=== PATIENT | male | born 1950 | race Hispanic/Latino ===

== ENCOUNTER 2017-02-22 22:47 | Inpatient (IN) | payer OTHER ==
[2017-02-22 22:50] VITALS: BMI 34.0
[2017-02-22] MEDS ORDERED: Nitroglycerin 2% Ointment Foilpak UD TOP STA (23:28)
[2017-02-22 23:31] LABS: BASO # 0.03 K/mm3 (0.0-2.0); BASO % 0.3 % (0.0-3.0); EOS # 0.4 (0.0-0.7); EOS % 3.5 % (1.5-5.0); GRAN # 8.37 (1.4-6.5); GRAN % 82.2 % (50.0-68.0); HEMATOCRIT 47.8 % (42.0-52.0); LYMPH % 9.7 % (22.0-35.0); MEAN CELL VOLUME 92.5 fl (80.0-105.0); MEAN CORPUSCULAR HEMOGLOBIN 31.3 pg (25.0-35.0); MEAN CORPUSCULAR HGB CONC 33.9 g/dl (31.0-37.0); MEAN PLATELET VOLUME 11.1 fl (7.0-11.0); MONO # 0.4 (0.1-0.6); MONO % 4.3 % (1.0-6.0); WHITE BLOOD COUNT 10.2 10^3/ul (4.5-11.0)
[2017-02-22 23:35] LABS: ALB/GLOB RATIO 1.3 (1.1-1.8); BILIRUBIN,TOTAL 0.8 mg/dL (0.2-1.3); CALCIUM 9.8 mg/dL (8.4-10.5); MAGNESIUM 2.4 mg/dL (1.7-2.2); POTASSIUM 3.1 mmol/L (3.6-5.0); TOTAL PROTEIN 7.8 g/dL (5.8-8.3)
--- NOTE | 2017-02-22 23:40 | ED PDOC ---
Arrival/HPI - General Chief Complaint: Chest Pain Time Seen by Provider: 02/22/17 23:08 Historian: Patient, Spouse - History of Present Illness Narrative History of Present Illness (Text): 02/22/17 23:30 A 66 year old male, whose past medical history includes CAD and stents placed in last year, whom is accompanied by his , presents to the emergency department complaining of mid-epigastric and central chest pain. Patient describes pain as aching sensation. He mentions this is the first time he's experienced chest pain since last year when stents were placed. Also, patient notes experiencing questionable chills, minor dizziness and lightheadedness. patient's states patient has not been as active as usual. Patient denies any nausea, vomiting, any pain radiating to either arm or neck, or any other complaints at this time. He is compliant with medications prescribed to him. Smokes 1 cigarette every other day. No PMD Symptom Onset: Sudden Symptom Course: Unchanged Past Medical History - Provider Review Nursing Documentation Reviewed: Yes - Infectious Disease Hx of Infectious Diseases: None - Tetanus Immunization Tetanus Immunization: Unknown - Cardiac Hx CA: Yes (CC x 3 stents) Hx Hypertension: Yes Hx Pacemaker: No - Pulmonary Hx Respiratory Disorders: Yes (SMOKES 3 CIGA A DAY.) Other/Comment: Smoker - Neurological Hx Paralysis: No - HEENT Hx HEENT Disorder: Yes (LEFT CATARACT SX) Hx Cataracts: Yes (WITH LEFT EYE SX) - Renal Hx Renal Disorder: Yes (CKD 3) - Endocrine/Metabolic Hx Endocrine Disorders: No - Hematological/Oncological Hx Blood Transfusions: No - Integumentary Hx Dermatological Disorder: No - Musculoskeletal/Rheumatological Hx Musculoskeletal Disorders: No Hx Falls: No - Gastrointestinal Hx Gastrointestinal Disorders: No - Genitourinary/Gynecological Hx Genitourinary Disorders: No - Psychiatric Hx Psychophysiologic Disorder: No Hx Depression: No Hx Emotional Abuse: No Hx Physical Abuse: No Hx Substance Use: No - Past Surgical History Past Surgical History: Non-Contributing - Surgical History Other/Comment: Cardiac cath x 3 stents - Anesthesia Hx Anesthesia: Yes Hx Anesthesia Reactions: No Hx Malignant Hyperthermia: No - Suicidal Assessment Feels Threatened In Home Enviroment: No Family/Social History - Physician Review Nursing Documentation Reviewed: Yes Family/Social History: No Known Family HX Smoking Status: Light Smoker < 10 Cigarettes Daily Hx Alcohol Use: Yes (SOCIALLY) Frequency of alcohol use: Socially Hx Substance Use: No Hx Substance Use Treatment: No Allergies/Home Meds Allergies/Adverse Reactions: Allergies No Known Allergies Allergy (Verified 02/29/16 21:28) Home Medications: Home Meds Medication Instructions Recorded Confirmed hydroCHLOROthiazide [Hydrodiuril] 1 tab PO BID 02/22/17 02/22/17 Review of Systems - Physician Review All systems were reviewed & negative as marked: Yes - Review of Systems Constitutional: Night Sweats (questionable) Cardiovascular: Chest Pain (mid-epigastric and central chest pain, non- radiating to neck or arm) Neurological: Dizziness, Other (lightheadedness) Physical Exam Vital Signs Pulse Resp BP Pulse Ox 02/23/17 02:01 71 15 107/65 96 02/23/17 00:48 76 14 101/55 L 96 02/22/17 22:48 79 14 143/76 97 - Systems Exam Respiratory/Chest: Present: Clear to Auscultation, Good Air Exchange. No: Respiratory Distress, Accessory Muscle Use Cardiovascular: Present: Regular Rate and Rhythm, Normal S1, S2. No: Murmurs Abdomen: Present: Normal Bowel Sounds. No: Tenderness, Distention, Peritoneal Signs Lower Extremity: Present: Edema (trace edema), Other (no signs of JVD or CHF) Skin: Present: Other (appears clammy but patient is in no discomfort) Medical Decision Making ED Course and Treatment: 02/22/17 23:35 Impression: 66 year old male with mid-epigastric and central chest pain. Physical exam shows trace edema to lower extremities; no signs of CHF or JVD; skin appears clammy but patient has no discomfort. Plan: -- EKG -- Chest X-ray -- Labs -- Urinalysis -- Aspirin -- Nitroglycerin -- Reassess and disposition Prior Visits: Notes and results from previous visits were reviewed. Patient was last seen in the emergency department on 02/28/2016 for intermittent left-sided chest discomfort. Patient was admitted. Progress Notes: EKG: Ordered, reviewed, and independently interpreted the EKG. Rate : 77 BPM Rhythm : NSR Interpretation : T-wave inversion, interior flattening to v6, v5, v4, 3 ABF; slight ST-depression in leads 1 & 2. Comparison : shows new t wave flating in III aVF and V5 compared to ekg in 2016 02/23/17 00:24 no new tropoinin elevatation. new CKD 3.6 up from baseline of 1.6, also mild hypokalemia, will admit for chest pain and Acute renal failure to Dr. Ocampo - Lab Interpretations Lab Results: 02/22/17 23:16 02/22/17 23:16 Lab Results 02/22/17 23:16: Sodium 140, Potassium 3.1 L, Chloride 100, Carbon Dioxide 30, Anion Gap 14, BUN 40 H, Creatinine 3.6 H, Est GFR ( Amer) 21, Est GFR ( Non-Af Amer) 17, Random Glucose 236 H, Calcium 9.8, Magnesium 2.4 H, Total Bilirubin 0.8, AST 53, ALT 53, Alkaline Phosphatase 83, Lactate Dehydrogenase 401, Total Creatine Kinase 87, Troponin I 0.02 D, NT-Pro-B Natriuret Pep 115, Total Protein 7.8, Albumin 4.4, Globulin 3.4, Albumin/Globulin Ratio 1.3 02/22/17 23:16: APTT 45.5 H 02/22/17 23:16: WBC 10.2, RBC 5.17, Hgb 16.2, Hct 47.8, MCV 92.5, MCH 31.3, MCHC 33.9, RDW 14.0, Plt Count 203, MPV 11.1 H, Gran % 82.2 H, Lymph % (Auto) 9.7 L, [place] % (Auto) 4.3, Eos % (Auto) 3.5, Baso % (Auto) 0.3, Gran # 8.37 H, Lymph # 1.0 L, [place] # 0.4, Eos # 0.4, Baso # 0.03 I have reviewed the lab results: Yes - RAD Interpretation Radiology Orders: 02/22/17 23:12 CHEST TWO VIEWS (PA/LAT) [RAD] Stat - Medication Orders Current Medication Orders: Acetaminophen (Tylenol 325mg Tab) 650 mg PO Q4H PRN PRN Reason: Pain, Mild (1-3) Sodium Chloride (Sodium Chloride 0.9%) 1,000 mls @ 150 mls/hr IV .Q6H40M STA Stop: 02/23/17 06:48 Last Admin: 02/23/17 00:23 Dose: 150 mls/hr eMAR Start Stop Document 11/17/17 00:23 AD (Rec: 02/23/17 00:23 AD [id number]) Intravenous Solution Start Date 02/23/17 Start Time 00:23 Sodium Chloride (Sodium Chloride 0.9%) 1,000 mls @ 100 mls/hr IV .Q10H STA Stop: 02/23/17 11:53 Last Admin: 02/23/17 02:32 Dose: 100 mls/hr eMAR Start Stop Document 02/23/17 02:32 GC (Rec: 02/23/17 02:32 GC [id number]) Intravenous Solution Start Date 02/23/17 Start Time 02:32 Discontinued Medications Aspirin (Aspirin Chewable) 324 mg PO STAT STA Stop: 02/22/17 23:26 Last Admin: 02/22/17 23:34 Dose: 324 mg Nitroglycerin (Nitro-Bid 2% Oint) 1 ea TOP STAT STA Stop: 02/22/17 23:29 Last Admin: 02/23/17 00:05 Dose: Not Given Non-Admin Reason: BP Parameters Not Met Potassium Chloride (K-Dur 20 Meq Er Tab) 40 meq PO STAT STA Stop: 02/23/17 00:09 Last Admin: 02/23/17 00:20 Dose: 40 meq - Scribe Statement The provider has reviewed the documentation as recorded by the Laura Gaspar Provider Scribe Attestation: All medical record entries made by the Scribsukh were at my direction and personally dictated by me. I have reviewed the chart and agree that the record accurately reflects my personal performance of the history, physical exam, medical decision making, and the department course for this patient. I have also personally directed, reviewed, and agree with the discharge instructions and disposition. Disposition/Present on Arrival - Present on Arrival Any Indicators Present on Arrival: No History of DVT/PE: No History of Uncontrolled Diabetes: No Urinary Catheter: No History of Decub. Ulcer: No History Surgical Site Infection Following: None - Disposition Have Diagnosis and Disposition been Completed?: Yes Diagnosis: Chest pain, Acute renal failure (ARF) Disposition: HOSPITALIZED Disposition Time: 11:00 Patient Plan: Telemetry Condition: IMPROVED
[2017-02-22 23:47] LABS: TROPONIN I 0.02 ng/mL
[2017-02-23] MEDS ORDERED: Potassium Chloride 20 mEq ER Tab PO STA (00:08)
[2017-02-23] MEDS ORDERED: Sodium Chloride 0.9% 1,000 ML IV STA ×2 (00:09→01:54)
[2017-02-23 07:40] LABS: TROPONIN I 0.02 ng/mL
[2017-02-23 07:47] LABS: ALB/GLOB RATIO 1.2 (1.1-1.8); BILIRUBIN,TOTAL 0.6 mg/dL (0.2-1.3); CALCIUM 8.9 mg/dL (8.4-10.5); POTASSIUM 3.3 mmol/L (3.6-5.0); TOTAL PROTEIN 7.1 g/dL (5.8-8.3)
[2017-02-23] MEDS ORDERED: Potassium Chloride 10 mEq ER Tab PO ONE (08:30)
--- NOTE | 2017-02-23 09:05 | RAD ---
HISTORY: chest pain COMPARISON: 02/28/2016 TECHNIQUE: Chest PA and lateral FINDINGS: LUNGS: No active pulmonary disease. PLEURA: No significant pleural effusion identified. No pneumothorax apparent. CARDIOVASCULAR: Normal. OSSEOUS STRUCTURES: No significant abnormalities. VISUALIZED UPPER ABDOMEN: Normal. OTHER FINDINGS: None. IMPRESSION: No active disease.
--- NOTE | 2017-02-23 10:31 | HP ---
CHIEF COMPLAINT AND HISTORY OF PRESENT ILLNESS: This is a 66-year-old male who has come into the hospital with chest pain. He was also complaining of neck pain when he was sitting and looking down. Patient states he had chest pain that lasted few minutes. It was mostly midepigastric. It is substernal. He denied any nausea, vomiting, or shortness of breath. He also had chest pain last year and had a stent that was placed. He denies any fevers or chills. No dysuria, frequency. No nocturia. No abdominal pain. No back pain.. REVIEW OF SYMPTOMS: All other review of systems are within normal limits except as I mentioned.. ALLERGIES: NO KNOWN DRUG ALLERGIES. HOME MEDICATIONS: His home medications are hydrochlorothiazide, aspirin, Plavix, metoprolol, Lipitor. PAST MEDICAL HISTORY: Coronary artery disease, hypertension, dyslipidemia. SOCIAL HISTORY: He has been smoking over 30 years. He states he only smoked few cigarettes.. FAMILY HISTORY: Father in his 50s of cirrhosis. Mother in her 60s of coronary artery disease. PHYSICAL EXAMINATION: VITAL SIGNS: Temperature is 97.6, pulse is 73, blood pressure is 135/86, respirations 20, and O2 saturation is 97%. Height is 5 feet 9 inches. Weight is 230 pounds. BMI is 34. GENERAL: The patient lying in bed, uncomfortable, and in no acute distress. HEENT: Atraumatic and normocephalic. Anicteric sclerae. Moist mucosa. [place] conjunctivae. No oral lesions. NECK: No JVD, anterior and posterior adenopathy, thyromegaly, or bruits. CARDIOVASCULAR: S1 and S2 regular. No murmur, rubs, or gallop. LUNGS: Clear to auscultation bilaterally. No wheezes, rales, or rhonchi. ABDOMEN: Bowel sounds are positive. Soft, nontender and nondistended. No hepatosplenomegaly. No rebound and no guarding EXTREMITIES: No cyanosis, clubbing, or edema. NEUROLOGIC: No facial asymmetry. Tongue is midline. No uvula deviation. Power is 5/5 upper extremity and lower extremity. Sensation intact in upper extremity and lower extremity. PSYCHIATRIC: He is awake, alert and oriented x3. No anxiety or depression. He has normal affect. GENITOURINARY: No CVA tenderness. VASCULAR: 2+ pulses in the carotid pulses and pedal pulses. SKIN: No erythema or nodules SPINE: Shows normal curvature. EXTREMITIES: No cyanosis and clubbing, no edema. LABORATORY DATA: White count of 10.2, PTT is 45. He has a potassium that is 3.1, repeat is 3.3, creatinine is 3.6, repeat is 3.4, magnesium is 2.4. His EKG done showed a heart rate of 77, sinus rhythm, QTC is 457, in V6 have ST-segment depression but rest of the ST is normal. Chest x-ray shows no infiltrates that I reviewed. ASSESSMENT: 1. Chest pain. 2. History of coronary artery disease with stent. 3. Hypertension. 4. Smoking. 5. Dyslipidemia. 6. Acute kidney injury. 7. Hypokalemia. PLAN: The patient is currently comfortable. I did review with the patient's last admission. Patient is admitted to the telemetry floor. Patient has elevated creatinine, not sure about the etiology. We will get urine studies. We will also get renal ultrasound done. The patient did not have abnormal kidney function on the last admission. We will get Dr. Aguilar to evaluate the patient as well. We will continue to follow closely. We will replace the patient's potassium. Milad Stuart MD
[2017-02-23 11:24] LABS: PH,URINE 5.5 (4.7-8.0); URINE BILIRUBIN NEGATIVE (NEGATIVE); URINE BLOOD NEGATIVE (NEGATIVE); URINE GLUCOSE (UA) NEGATIVE (NEGATIVE); URINE KETONE TRACE mg/dL (NEGATIVE); URINE LEUKOCYTE ESTERASE NEGATIVE Leu/uL (NEGATIVE); URINE PROTEIN TRACE mg/dL (<30 mg/dL); URINE UROBILINOGEN 0.2 E.U./dL (<1 E.U./dL)
[2017-02-23 11:33] LABS: URINE APPEARANCE CLEAR (CLEAR); URINE COLOR YELLOW (YELLOW)
[2017-02-23 11:50] LABS: URINE RBC NEGATIVE /hpf (0-2); URINE WBC NEGATIVE /hpf (0-6)
--- NOTE | 2017-02-23 14:11 | US ---
PROCEDURE: Ultrasound of the Kidneys HISTORY: ARF COMPARISON: None available. TECHNIQUE: Sonogram of the kidneys. FINDINGS: RIGHT KIDNEY: Measures: 9.4 x 4.3 x 5.1 cm. Normal in size, contour and echogenicity. There is a partially calcified mass in the right renal pelvis measuring 1.8 cm in diameter. A follow-up CT is suggested. LEFT KIDNEY: Measures: 10.5 x 4.1 x 5.2 cm. Normal in size, contour and echogenicity. No stone, solid mass lesion or hydronephrosis visualized. There is a 2 cm cyst in the lower pole OTHER FINDINGS: None. IMPRESSION: Partially calcified mass in the right renal pelvis measuring 1.8 cm in diameter. Follow-up CT is suggested
--- NOTE | 2017-02-23 16:15 | CON ---
DATE: 02/23/2017 INDICATIONS: Chest pain and coronary artery disease. 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 It is, however, the first time he has had chest pain since his stents in February of last year and April of this year. The pain lasted about 30 minutes, it resolved and he has had no further symptoms. This morning he feels well. There is no orthopnea, PND, syncope, presyncope, lightheadedness, dizziness, vertigo, palpitation, edema, claudication, fever, chills, cough, sputum production, hemoptysis, abdominal pain, nausea, vomiting, diarrhea, constipation, or melena. PAST MEDICAL HISTORY: Notable for chest pain. In February 2016, he presented with chest pain and positive troponins. Cardiac catheterization demonstrated severe coronary artery disease. He underwent circumflex and obtuse marginal branch stenting during that admission and in April, he underwent LAD diagonal stenting. He has a history of hypertension, cigarettes smoking, cataract. An echocardiogram in February demonstrated [id number] mitral regurgitation. There was no history of rheumatic fever, congestive heart failure, arrhythmia, diabetes, stroke, TIA, or gout. MEDICATIONS: At the time of admission include Cozaar, hydrochlorothiazide, Lipitor, metoprolol, and Plavix. ALLERGIES: THERE ARE NO MEDICATION ALLERGIES REPORTED. SOCIAL HISTORY: He lives at home. He is ambulatory. He continues to smoke intermittently. He does not drink alcohol significantly. FAMILY HISTORY: Noncontributory. REVIEW OF SYSTEMS: A 10-point review of systems is otherwise unremarkable except as noted above. PHYSICAL EXAMINATION GENERAL: He is a well-developed male in no acute distress, sitting on his bed in telemetry. VITAL SIGNS: Unremarkable. He is in sinus rhythm at 73 beats per minute. He is afebrile. Blood pressure 135/86, respirations 20, and O2 sat 96-97% on room air. HEENT: Reveals no neck vein distention, thyromegaly or carotid bruits. Mucous membranes are moist. Conjunctivae pink. NECK: Supple. LUNGS: Bliss clear. HEART: Reveals normal first and second heart sounds without murmur, gallop, rub or click. ABDOMEN: Soft. Bowel sounds are present. No mass, organomegaly, tenderness, rebound or guarding. No CVA tenderness. No palpable abdominal aortic aneurysm. EXTREMITIES: Reveals no cyanosis, clubbing or edema. NEUROLOGIC: He is awake, alert, and oriented. SKIN: Warm and dry. No rash or cellulitis. PSYCHIATRIC: Normal as to mood and affect. LABORATORY AND IMAGING: An EKG demonstrates regular sinus rhythm, poor R-wave progression, ST-T wave changes consistent with ischemia, a bit more prominent than on a prior EKG. Chest x-ray is a portable study, it is not yet interpreted, that is, a chest x-ray done in the emergency room is not yet interpreted. My interpretation is that the lung bliss are clear. There is no evidence of congestive heart failure, infiltrate or effusion. CBC is unremarkable. PTT is 45.5. Electrolytes are notable for potassium of 3.1 with repeat 3.3. BUN 40 and creatinine 3.6 with repeat 3.4. Two troponins are negative. CK is 87. LFT's are unremarkable. Magnesium 2.4. IMPRESSION AND PLAN: Quentin Alberts is a 66-year-old man with known coronary artery disease, smoker, and hypertensive, who presents with chest pain, but no evidence of myocardial infarction by 2 sets of negative cardiac enzymes. His creatinine is elevated as compared to his prior admission. At this time, I will review his old records. I will discuss his case with Dr. Stuart, especially with regard to his worsening renal function. I would continue aspirin, metoprolol, and Plavix. I will monitor in's and out's. Check stool for occult blood. Review his old records. He should be considered for nuclear stress testing perhaps on an outpatient basis. I will follow along with you and make additional recommendations based on his clinical course. Jeffrey Aguilar MD [facility]
--- NOTE | 2017-02-23 23:20 | CARD ---
APPROVED REPORT EKG Measurement Heart [id number] <Conclusion> Normal sinus rhythm Right axis deviation Abnormal ECG
[2017-02-24 00:25] VITALS: RESP 20
--- NOTE | 2017-02-24 10:45 | PN ---
DATE: 02/24/2017 SUBJECTIVE: The patient is seen lying in bed on Telemetry. He is currently comfortable. He has had no recurrent chest pain. OBJECTIVE: GENERAL: He is a middle-aged male, who is comfortable at rest. VITAL SIGNS: Blood pressure 138/88 with a pulse of 60 in sinus, respiratory rate 14, and he is afebrile. HEENT: No JVD. CHEST: Few scattered rhonchi heard. HEART: PMI in normal position. No pathological gallops noted. ABDOMEN: Soft and nontender. Normoactive bowel sounds. EXTREMITIES: No edema. DIAGNOSTIC DATA: Morning blood work is pending. Renal ultrasound reportedly showed evidence of partially calcified mass in the right renal pelvis. CT scan is pending. CURRENT MEDICATIONS: Remains aspirin, Cozaar 50 mg daily, Lipitor 20 mg daily, metoprolol 25 mg b.i.d., and Plavix 75 mg daily. IMPRESSION: 1. Chest pain with negative cardiac enzymes, known coronary artery disease, status post remote percutaneous coronary intervention. 2. Renal insufficiency, repeat blood work pending. 3. Partially calcified mass. CT of abdomen is pending. RECOMMENDATIONS: Repeat blood work will be reviewed. Results of CT will be reviewed as well and eventual outpatient stress test will be planned. His current cardiac medications will continue. Kwasi Lacy MD
--- NOTE | 2017-02-24 10:49 | CT ---
PROCEDURE: CT Abdomen and Pelvis without intravenous contrast HISTORY: lesion on kidney COMPARISON: Renal ultrasound 02/23/2017 and abdominal ultrasound 10/31/2014 TECHNIQUE: Without contrast.. Contrast Dose: 0 Radiation dose: Total exam DLP = 1219.33 mGy-cm. This CT exam was performed using one or more of the following dose reduction techniques: Automated exposure control, adjustment of the mA and/or kV according to patient size, and/or use of iterative reconstruction technique. FINDINGS: LOWER THORAX: No infiltrate. Very small hiatal hernia. 5 mm right lower lobe nodule for which no follow-up is advised as per Fleischner society criteria. LIVER: Normal size and contour. Heterogeneous diminished attenuation consistent with fatty infiltration. Focal fatty sparing is seen about the gallbladder fossa. There is also a somewhat geographic area of more extensive low-attenuation in the medial segment of the left hepatic lobe, adjacent to the festus hepatis, possibly representing more extensive focal fatty infiltration. It measures 1.4 x 1.6 cm. This should be further evaluated with either multiphasic contrast-enhanced CT examination or MRI examination of the abdomen. There is no biliary dilatation. The contour is smooth GALLBLADDER AND BILE DUCTS: . PANCREAS: Unremarkable. No gross lesion or ductal dilatation. SPLEEN: Unremarkable. ADRENALS: There is a small rounded fat attenuation right adrenal mass, 1.3 cm in diameter, consistent with a myelolipoma. KIDNEYS AND URETERS: Peripherally calcified intermediate attenuation mid right renal mass, 2.3 cm in greatest dimension. Immediately adjacent this is a small nonspecific exophytic mass, 8 mm in diameter. This peripherally calcified structure corresponds to a 2.2 cm peripherally calcified structure on CT examination, under measured on the actual examination of 02/23/2017. In retrospect, this is felt to correspond to a peripherally calcified right renal mass on abdominal CT examination of 10/31/2014, again under measured on the original examination but measuring 2.1 cm, in retrospect. This is grossly unchanged over a period of approximately 2 years. Nevertheless, given its intermediate attenuation, evaluation with pre and post contrast enhanced CT examination of the kidneys is advised. There is a left lower pole renal cortical cyst, 1.8 cm, corresponding to a cyst seen on ultrasound examination both recently and on 10/31/2014. There is no renal calculus or hydronephrosis. VASCULATURE: Unremarkable. No aortic aneurysm. BOWEL: Unremarkable. No obstruction. No gross mural thickening. APPENDIX: Unremarkable. Normal appendix. PERITONEUM: Unremarkable. No free fluid. No free air. LYMPH NODES: Unremarkable. No enlarged lymph nodes. BLADDER: Poorly distended. No gross abnormality. REPRODUCTIVE: Unremarkable prostate BONES: No acute fracture. OTHER FINDINGS: None. IMPRESSION: Peripherally calcified intermediate attenuation right renal mass grossly unchanged compared to ultrasound examination dating back to 10/31/2014. However, evaluation with pre and post contrast enhanced CT examination is advised. Heterogeneous fatty infiltration of the liver. Circumscribed low-attenuation lesion in medial segment left hepatic lobe. Recommend either multiphasic contrast CT of the abdomen or MRI of the abdomen for further evaluation. Incidental right adrenal myelolipoma. Additional minor findings as above.
[2017-02-24 11:40] LABS: POTASSIUM 3.5 mmol/L (3.6-5.0)
--- NOTE | 2017-02-24 21:54 | PN ---
DATE: 02/24/2017 SUBJECTIVE: The patient has no complaints of any chest pain or shortness of breath. PHYSICAL EXAMINATION: VITAL SIGNS: Temperature is 97.9, pulse of 51, blood pressure 131/83, respirations 20. GENERAL: The patient is lying in bed, flat, comfortable. HEENT: No oral lesion. Anicteric sclerae. Moist mucosa. NECK: No JVD, adenopathy, or thyromegaly. CARDIOVASCULAR: S1 and S2, regular. No murmurs, rubs, or gallops. LUNGS: Clear to auscultation bilaterally. No wheeze, rales, or rhonchi. ABDOMEN: Bowel sounds are positive, soft, nontender and nondistended. EXTREMITIES: No cyanosis, clubbing or edema. LABS: White count 10.3, hemoglobin is 16.2 with creatinine of 2.4. The renal ultrasound done shows that the right kidney measure 9.4 x 4.3 cm. Left kidney measures 10.5 x 4.1 cm. There is a 2 cm cyst in the lower pole of left kidney. In the right kidney, there is a partially calcified mass in the right renal pelvis measuring 1.[address] done showed a periphery calcified intermediate attenuation of the right renal mass that is grossly unchanged compared to an ultrasound examination from 10/2014. There is also a low attenuation of lesion in the medial segment of the left hepatic lobe. ASSESSMENT: 1. Chest pain, resolved. 2. Acute kidney injury, improving. 3. Right renal mass, unchanged from 10/2014. 4. Fatty infiltration in the liver with a circumscribed low attenuation lesion in the left hepatic lobe. 5. History of coronary artery disease with stent. 6. Hypertension. 7. Smoking. 8. Dyslipidemia. 9. Hypokalemia, improved. PLAN: The patient is currently comfortable. I reviewed the patient's CAT scan. I will get Dr. Chatman on consultation. There is an outpatient stress test that has been planned. He is going to continue on Lipitor for dyslipidemia. He is on metoprolol and aspirin for his coronary artery disease. His IV fluids have been discontinued. He is going to continue his Plavix for his stent. I will ask Dr. Hancock to also evaluate the patient's liver lesion. The patient was not able to get contrast study for the CAT scan because of his acute kidney injury. I would also not give gadolinium at this point for recent MRI is planned. If it needs to be done, it should be done without gadolinium. I will let Dr. Hancock to evaluate. Milad Stuart MD
[2017-02-25 07:14] LABS: HEMATOCRIT 46.8 % (42.0-52.0); MEAN CELL VOLUME 91.2 fl (80.0-105.0); MEAN CORPUSCULAR HEMOGLOBIN 30.6 pg (25.0-35.0); MEAN CORPUSCULAR HGB CONC 33.5 g/dl (31.0-37.0); MEAN PLATELET VOLUME 10.8 fl (7.0-11.0); RED CELL DISTRIBUTION WIDTH 13.6 % (11.5-14.5); WHITE BLOOD COUNT 6.4 10^3/ul (4.5-11.0)
[2017-02-25 07:30] LABS: IRON 67 ug/dL (45-180)
--- NOTE | 2017-02-25 08:21 | PN ---
DATE: 02/25/2017 SUBJECTIVE: The patient is seen sitting in bed on telemetry. He is currently comfortable. He has had no further chest pain. CT scan of the abdomen is completed. There is a calcified right renal mass noted and followup has been recommended. This appears unchanged from a scan of 2015. CURRENT MEDICATIONS: Include aspirin, Cozaar, Lipitor, metoprolol, and Plavix. OBJECTIVE: GENERAL: He is a middle aged male appears comfortable at the present time. VITAL SIGNS: His blood pressure is 156/80 with a pulse of 56 in sinus, respirations are 16, and he is afebrile. HEENT: No JVD. CHEST: Clear to auscultation and percussion. HEART: PMI in normal position. No pathological gallops noted. ABDOMEN: Soft and nontender. Normoactive bowel sounds. EXTREMITIES: No edema. DIAGNOSTIC DATA: Potassium is 3.5, BUN and creatinine are 34 and 2.4. IMPRESSION: 1. Recent chest pain with known coronary artery disease status post prior multivessel percutaneous coronary intervention, appears stable at present. 2. Renal insufficiency, currently improved. 3. Renal mass. Further evaluation to be planned. RECOMMENDATIONS: From cardiac standpoint, he appears stable for discharge home at this time. His current medications should be continued. Continue risk factor control as advised as well. Now, the patient's stress test will be planned. Kwasi Lacy MD
[2017-02-25 09:02] LABS: BILIRUBIN,TOTAL 0.7 mg/dL (0.2-1.3); PHOSPHOROUS 2.8 mg/dL (2.5-4.5); TOTAL PROTEIN 7.5 g/dL (5.8-8.3)
[2017-02-25 09:11] VITALS: BP 140/78; PULSE 50
[2017-02-25 09:13] LABS: ALB/GLOB RATIO 1.1 (1.1-1.8); CALCIUM 9.2 mg/dL (8.4-10.5); URIC ACID 13.1 mg/dL (3.5-8.5)
[2017-02-25 09:51] LABS: POTASSIUM 3.5 mmol/L (3.6-5.0)
[2017-02-25 12:36] LABS: VITAMIN D 25 OH TOTAL < 12.8 NG/ML (30.0-100.0)
[2017-02-25 14:34] VITALS: TEMP 98.6; O2SAT 96
--- NOTE | 2017-02-26 00:48 | DS ---
HISTORY OF PRESENT ILLNESS: This is a 66-year-old male who had come into the hospital because of chest pain. He was evaluated by Cardiology with Dr. Aguilar. He was cleared to be discharged and have an outpatient stress test done. The patient was also found to have an elevated creatinine. He had been on hydrochlorothiazide. He was hypokalemic. He was given IV fluids. His creatinine improved, off of the hydrochlorothiazide. The patient has minimal proteinuria. He has no complaints of any chest pain. No shortness of breath. His dizziness has improved. He was found to have an ultrasound of the kidney that showed calcified lesion in his right kidney. A CAT scan done showed that the renal mass was grossly unchanged from 10/2014. The patient is going to follow up with Dr. Chatman as an outpatient. He also was found to have a heterogeneous fatty infiltration of the liver. He will be seen by Dr. Hancock and then followup as an outpatient, I did explain to the importance to follow up to the patient. He does agreed to follow up. He has no complaint of any headaches or dizziness. No nausea. PHYSICAL EXAMINATION: VITAL SIGNS: Temperature is 97.9, pulse of 51, blood pressure is 156/88, respirations 20. GENERAL: The patient is lying in bed, flat, comfortable. HEENT: No oral lesion. Anicteric sclerae. Moist mucosa. NECK: No JVD, adenopathy, or thyromegaly. CARDIOVASCULAR: S1 and S2, regular. No murmurs, rubs, or gallops. LUNGS: Clear to auscultation bilaterally. No wheeze, rales, or rhonchi. ABDOMEN: Bowel sounds are positive, soft, nontender and nondistended. EXTREMITIES: No cyanosis, clubbing or edema. ASSESSMENT: 1. Chest pain, resolved. 2. Acute kidney injury, improved. 3. Right renal mass, unchanged from 10/2014. 4. Fatty infiltration of the liver, at the left hepatic lobe. 5. Coronary artery disease with stent. 6. Hypertension. 7. Smoking. 8. Dyslipidemia. 9. Hypokalemia, improved. 10. Hyperuricemia. PLAN: The patient is currently on aspirin. He is on Lipitor for dyslipidemia. The patient is on Plavix, he is going to continue. He was advised to discontinue his hydrochlorothiazide. He is going to follow up in the office for repeat of his blood work. He is advised to bring in his home medications. CONDITION: Stable. ACTIVITIES: Increase as tolerated. Milad Stuart MD
== END 2017-02-25 14:00 | disposition home or self-care (01) | DRG 543 ==
LOC: ED 22:47 → ERH 02-23 00:47 → 2RSO 02-23 02:49 → 3RNO 02-24 16:15
PROVIDERS: ADMIT Internal Medicine Nephrology; ATTEND Internal Medicine Nephrology
DX: R07.9 Chest pain, unspecified (principal); N17.9 Acute kidney failure, unspecified; I25.10 Atherosclerotic heart disease of native coronary artery without angina pectoris; N18.3 Chronic kidney disease, stage 3 (moderate); K76.0 Fatty (change of) liver, not elsewhere classified; E87.6 Hypokalemia; I12.9 Hypertensive chronic kidney disease with stage 1 through stage 4 chronic kidney disease, or unspecified chronic kidney disease; E78.5 Hyperlipidemia, unspecified; F17.210 Nicotine dependence, cigarettes, uncomplicated; E79.0 Hyperuricemia without signs of inflammatory arthritis and tophaceous disease; N28.89 Other specified disorders of kidney and ureter; I34.0 Nonrheumatic mitral (valve) insufficiency; Z95.5 Presence of coronary angioplasty implant and graft

== ENCOUNTER 2017-03-15 09:59 | Emergency (ER) | payer OTHER ==
[2017-03-15 10:00] VITALS: BMI 34.0
--- NOTE | 2017-03-15 10:01 | ED PDOC ---
Arrival/HPI - General Time Seen by Provider: 03/15/17 10:00 Historian: Patient - History of Present Illness Narrative History of Present Illness (Text): 03/15/17 10:01 66 y/o male, pmh including htn/hyperlipidemia/ACS, nkda, c/o rt. ankle pain and swelling x 2 days with no fall or trauma. Pt. stated that he has been walking on the past few days with weather change, experienced rt. ankle swelling and pain, no calf pain, no chest pain or shortness of breath, no night sweat, no dizziness, no change in vision, no numbness or tingling, no other medical or psychological complaints. Past Medical History - Provider Review Nursing Documentation Reviewed: Yes - Infectious Disease Hx of Infectious Diseases: None - Tetanus Immunization Tetanus Immunization: Unknown - Cardiac Hx OR: Yes (CC x 3 stents) Hx Hypertension: Yes Hx Pacemaker: No - Pulmonary Hx Respiratory Disorders: Yes (SMOKES 3 CIGA A DAY.) Other/Comment: Smoker - Neurological Hx Paralysis: No - HEENT Hx HEENT Disorder: Yes (LEFT CATARACT SX) Hx Cataracts: Yes (WITH LEFT EYE SX) - Renal Hx Renal Disorder: Yes (CKD 3) - Endocrine/Metabolic Hx Endocrine Disorders: No - Hematological/Oncological Hx Blood Transfusions: No - Integumentary Hx Dermatological Disorder: No - Musculoskeletal/Rheumatological Hx Musculoskeletal Disorders: No Hx Falls: No - Gastrointestinal Hx Gastrointestinal Disorders: No - Genitourinary/Gynecological Hx Genitourinary Disorders: No - Psychiatric Hx Psychophysiologic Disorder: No Hx Depression: No Hx Emotional Abuse: No Hx Physical Abuse: No Hx Substance Use: No - Past Surgical History Past Surgical History: Non-Contributing - Surgical History Other/Comment: Cardiac cath x 3 stents - Anesthesia Hx Anesthesia: Yes Hx Anesthesia Reactions: No Hx Malignant Hyperthermia: No - Suicidal Assessment Feels Threatened In Home Enviroment: No Family/Social History - Physician Review Nursing Documentation Reviewed: Yes Family/Social History: Unknown Family HX Smoking Status: Light Smoker < 10 Cigarettes Daily Hx Alcohol Use: Yes (SOCIALLY) Hx Substance Use: No Hx Substance Use Treatment: No Allergies/Home Meds Allergies/Adverse Reactions: Allergies No Known Allergies Allergy (Verified 02/29/16 21:28) Review of Systems - Review of Systems Constitutional: absent: Fatigue, Fevers Eyes: absent: Vision Changes ENT: absent: Hearing Changes Respiratory: absent: SOB, Cough Cardiovascular: absent: Chest Pain Gastrointestinal: absent: Abdominal Pain, Nausea, Vomiting Musculoskeletal: Arthralgias, Joint Swelling. absent: Back Pain, Neck Pain, Myalgias Skin: absent: Rash, Pruritis Neurological: absent: Headache, Dizziness Physical Exam Vital Signs Reviewed: Yes Vital Signs Temp Pulse Resp BP Pulse Ox 03/15/17 11:24 76 17 144/88 96 03/15/17 10:25 98.9 F 72 16 163/121 H 98 Temperature: Afebrile Blood Pressure: Normal Pulse: Regular Respiratory Rate: Normal Appearance: Positive for: Well-Appearing, Non-Toxic, Comfortable Pain Distress: Mild Mental Status: Positive for: Alert and Oriented X 3 - Systems Exam Head: Present: Atraumatic, Normocephalic Pupils: Present: PERRL Extroacular Muscles: Present: EOMI Conjunctiva: Present: Normal Mouth: Present: Moist Mucous Membranes Neck: Present: Normal Range of Motion Respiratory/Chest: Present: Clear to Auscultation, Good Air Exchange. No: Respiratory Distress, Accessory Muscle Use, Wheezes, Decreased Breath Sounds, Retracting, Rhonchi Cardiovascular: Present: Regular Rate and Rhythm, Normal S1, S2. No: Murmurs Abdomen: Present: Normal Bowel Sounds. No: Tenderness, Distention, Peritoneal Signs, Rebound Back: Present: Normal Inspection Upper Extremity: Present: Normal Inspection. No: Cyanosis, Edema Lower Extremity: Present: Normal Inspection, Other (RLE: +ttp and mild swelling on the lateral malleolus region with no erythematous, negative blanco signs, no foot tenderness, FROM without limitation, sensation intact, motor 5/5, +DPPT pulses, capillay refill< 2 seconds, neurovascular intact. ). No: Edema Neurological: Present: GCS=15, CN II-XII Intact, Speech Normal Skin: Present: Warm, Dry, Normal Color. No: Rashes Psychiatric: Present: Alert, Oriented x 3, Normal Insight, Normal Concentration Medical Decision Making ED Course and Treatment: 03/15/17 10:26 -Rt. ankle xray -RLE venuous doppler -Tramadol -Observe and reassess 03/15/17 11:20 -Rt. ankle xray: +degenerative changes on the rt. ankle joint, no acute fracture or dislocation but there is mild lateral swelling. -RLE venuous doppler: as per preliminary report, no acute DVT -Pt. feels better, discussed with the patient, advised outpatient follow up with the pmd/orthopedic for MRI as indicated. -Dragan wrap applied by me with neurovascular intact, post shop shoe, cane as he is not a crutch candidate. -Discharge home with tylenol, dragan wrap, post op shoe, cane, elevation, avoid excessive walking or standing, follow up with your own pmd and orthopedic follow up with MRI as needed for your rt. ankle, return to the ER for any new or worsening signs or symptoms. - RAD Interpretation Radiology Orders: 03/15/17 10:21 ANKLE RIGHT 3 VIEWS ROUTINE [RAD] Stat DUPLEX LOWER EXTRM VEIN RIGHT [US] Stat -Rt. ankle xray: mild lateral soft tissue swelling, mild degenerative changes, no fracture or dislocation -RLE venuous doppler: as per preliminary report, no acute DVT Cocoa Room Operator: Radiologist - Medication Orders Current Medication Orders: Discontinued Medications Tramadol/Acetaminophen (Ultracet 37.5/325 Mg) 2 tab PO STAT STA Stop: 03/15/17 10:23 Last Admin: 03/15/17 10:28 Dose: 2 tab MAR Pain Assessment Document 03/15/17 10:28 LASHONDA (Rec: 03/15/17 10:33 LASHONDA [facility] [id number]) Pain Reassessment Is this a pain reassessment? Yes Presence of Pain Presence of Pain Yes Pain Scale Used Pain Scale Used Numeric Location Left, Right or Bilateral Right Pain Location Body Site Ankle Description Description Sharp Intensity of Pain at present 2 - PA / SHIPPING RECEIVING CLERK / Resident Statement MD/DO has reviewed & agrees with the documentation as recorded. Disposition/Present on Arrival - Present on Arrival Any Indicators Present on Arrival: No History of DVT/PE: No History of Uncontrolled Diabetes: No Urinary Catheter: No History of Decub. Ulcer: No History Surgical Site Infection Following: None - Disposition Have Diagnosis and Disposition been Completed?: Yes Diagnosis: Ankle pain, Osteoarthritis Disposition: HOME/ ROUTINE Disposition Time: 11:22 Patient Plan: Discharge Condition: GOOD Additional Instructions: -Discharge home with tylenol, dragan wrap, post op shoe, cane, elevation, avoid excessive walking or standing, follow up with your own pmd and orthopedic follow up with MRI as needed for your rt. ankle, return to the ER for any new or worsening signs or symptoms. Prescriptions: Acetaminophen [Tylenol 325mg tab] 2 tab PO QID PRN #30 tab PRN Reason: Other Referrals: Puneet Hobbs, [Staff Provider] - Follow up with primary Forms: WORK NOTE
[2017-03-15] MEDS ORDERED: TraMADol/Apap 37.5/325 mg Tab PO STA (10:22)
[2017-03-15 10:26] VITALS: TEMP 98.9
[2017-03-15 11:25] VITALS: BP 144/88; PULSE 76; RESP 17; O2SAT 96
--- NOTE | 2017-03-15 11:42 | RAD ---
PROCEDURE: Right Ankle Radiographs. HISTORY: Rt. ankle lateral swelling and pain x 2 days COMPARISON: None FINDINGS: BONES: There is diffuse bone demineralization. There is no acute displaced fracture or bone destruction. Bone alignment is normal. JOINTS: There is mild degenerative osteoarthrosis in the talonavicular and deviated joints. . Ankle mortise maintained. Talar dome intact SOFT TISSUES: There is moderate lateral soft tissue swelling. OTHER FINDINGS: None. IMPRESSION: No acute displaced fracture or dislocation. Moderate lateral soft tissue swelling.
--- NOTE | 2017-03-15 19:37 | US ---
PROCEDURE: Right lower extremity venous US HISTORY: Leg pain and swelling. Evaluate for DVT. PHYSICIAN(S): Tobin Braden M.D. TECHNIQUE: Duplex sonography and color-flow Doppler with graded compression were used to evaluate the deep venous system of the right lower extremity. FINDINGS: The visualized deep venous system of the right lower extremity is sonographically normal and compressible. Normal waveforms and augmentation are seen. There is no sonographic evidence for deep venous thrombosis in the visualized segments of the right lower extremity. IMPRESSION: 1. No sonographic evidence for deep venous thrombosis in the visualized segments of the right lower extremity.
== END 2017-03-15 11:28 | disposition home or self-care (01) ==
LOC: ED 09:59
DX: M25.571 Pain in right ankle and joints of right foot (principal); M19.90 Unspecified osteoarthritis, unspecified site; E78.5 Hyperlipidemia, unspecified; I12.9 Hypertensive chronic kidney disease with stage 1 through stage 4 chronic kidney disease, or unspecified chronic kidney disease; N18.3 Chronic kidney disease, stage 3 (moderate); F17.210 Nicotine dependence, cigarettes, uncomplicated

== ENCOUNTER 2018-01-28 21:15 | Inpatient (IN) | payer MEDICARE, OTHER ==
[2018-01-28 21:17] VITALS: BMI 34.7
[2018-01-28] MEDS ORDERED: diltiaZEM IVPB 100mg in NS 100 ML IV PRN (21:23)
[2018-01-28 21:36] LABS: HEMOGLOBIN 16.5 g/dL (14.0-18.0); MEAN CELL VOLUME 90.7 fl (80.0-105.0); MEAN CORPUSCULAR HEMOGLOBIN 30.7 pg (25.0-35.0); MEAN CORPUSCULAR HGB CONC 33.9 g/dl (31.0-37.0); MEAN PLATELET VOLUME 10.5 fl (7.0-11.0); RBC 5.37 10^6/uL (3.5-6.1); RED CELL DISTRIBUTION WIDTH 13.6 % (11.5-14.5); WHITE BLOOD COUNT 8.5 10^3/ul (4.5-11.0)
[2018-01-28 21:43] LABS: ALB/GLOB RATIO 1.1 (1.1-1.8); ALBUMIN 4.3 g/dL (3.0-4.8); CALCIUM 9.5 mg/dL (8.4-10.5)
--- NOTE | 2018-01-28 21:47 | ED PDOC ---
Arrival/HPI - General Chief Complaint: Palpitations Time Seen by Provider: 01/28/18 21:17 Historian: Patient - History of Present Illness Narrative History of Present Illness (Text): 01/28/18 21:20 Quentin Alberts is a 67 year old male, whose past medical history includes CAD with cardiac stents, hypertension, and hyperlipidemia, who presents to the ED brought in by EMS complaining of sudden onset of left-sided chest discomfort with associated palpitations. Paramedcs on arrival, noted patient to be in SVT. Patient was given multiple doses of Adenosine, converting to atrial fibrillation at a slower rate but still fast. Patient converted back to rapid SVT. Patient denies any shortness of breath, back pain, leg pain, or chest pain currently. Time/Duration: Prior to Arrival Symptom Onset: Sudden Symptom Course: Unchanged Severity Level: Severe Activities at Onset: Light Context: Home Past Medical History - Provider Review Nursing Documentation Reviewed: Yes - Infectious Disease Hx of Infectious Diseases: None - Tetanus Immunization Tetanus Immunization: Unknown - Cardiac Hx [place]: Yes (CC x 3 stents) Hx Hypertension: Yes Hx Pacemaker: No - Pulmonary Hx Respiratory Disorders: Yes (SMOKES 3 CIGA A DAY.) Other/Comment: Smoker - Neurological Hx Paralysis: No - HEENT Hx HEENT Disorder: Yes (LEFT CATARACT SX) Hx Cataracts: Yes (WITH LEFT EYE SX) - Renal Hx Renal Disorder: Yes (CKD 3) - Endocrine/Metabolic Hx Endocrine Disorders: No - Hematological/Oncological Hx Blood Transfusions: No - Integumentary Hx Dermatological Disorder: No - Musculoskeletal/Rheumatological Hx Musculoskeletal Disorders: No Hx Falls: No - Gastrointestinal Hx Gastrointestinal Disorders: No - Genitourinary/Gynecological Hx Genitourinary Disorders: No - Psychiatric Hx Psychophysiologic Disorder: No Hx Depression: No Hx Emotional Abuse: No Hx Physical Abuse: No Hx Substance Use: No - Past Surgical History Past Surgical History: Non-Contributing - Surgical History Other/Comment: Cardiac cath x 3 stents - Anesthesia Hx Anesthesia: Yes Hx Anesthesia Reactions: No Hx Malignant Hyperthermia: No - Suicidal Assessment Feels Threatened In Home Enviroment: No Family/Social History - Physician Review Nursing Documentation Reviewed: Yes Family/Social History: Unknown Family HX Smoking Status: Light Smoker < 10 Cigarettes Daily Hx Alcohol Use: Yes (SOCIALLY) Hx Substance Use: No Hx Substance Use Treatment: No Allergies/Home Meds Allergies/Adverse Reactions: Allergies No Known Allergies Allergy (Verified 01/28/18 21:17) Review of Systems - Physician Review All systems were reviewed & negative as marked: Yes - Review of Systems Constitutional: Normal. absent: Fevers Eyes: Normal ENT: Normal Respiratory: Normal Cardiovascular: Chest Pain, Palpitations Gastrointestinal: Normal. absent: Abdominal Pain, Diarrhea, Nausea, Vomiting Genitourinary Male: Normal Musculoskeletal: Normal. absent: Back Pain, Neck Pain Skin: Normal Neurological: Normal Endocrine: Normal Hemo/Lymphatic: Normal Psychiatric: Normal Physical Exam Vital Signs Reviewed: Yes Vital Signs Temp Pulse Resp BP Pulse Ox 01/28/18 21:31 156 H 192/130 H 01/28/18 21:25 192/130 H 01/28/18 21:23 97.4 F L 160 H 20 98 Temperature: Afebrile Blood Pressure: Normal Pulse: Tachycardic Respiratory Rate: Normal Appearance: Positive for: Well-Appearing Pain Distress: None Mental Status: Positive for: Alert and Oriented X 3 - Systems Exam Head: Present: Atraumatic, Normocephalic Pupils: Present: PERRL Extroacular Muscles: Present: EOMI Conjunctiva: Present: Normal Mouth: Present: Moist Mucous Membranes Neck: Present: Normal Range of Motion Respiratory/Chest: Present: Clear to Auscultation, Good Air Exchange. No: Respiratory Distress, Accessory Muscle Use Cardiovascular: Present: Tachycardic Abdomen: No: Tenderness, Distention, Peritoneal Signs Back: Present: Normal Inspection Upper Extremity: Present: Normal Inspection. No: Cyanosis, Edema Lower Extremity: Present: Normal Inspection, NORMAL PULSES, Normal ROM. No: Edema, CALF TENDERNESS, Swelling Neurological: Present: GCS=15, CN II-XII Intact, Speech Normal Skin: Present: Warm, Dry, Normal Color. No: Rashes Psychiatric: Present: Alert, Oriented x 3, Normal Insight, Normal Concentration Medical Decision Making ED Course and Treatment: 01/28/18 21:20 Impression: 67 year old male c/o sudden onset left-sided chest pain and palpitations prior to arrival. Plan: -- EKG -- CXR -- Labs, cardiac enzymes, BNP -- Cardizem -- Aspirin -- Reassess and disposition Progress Notes: Reviewed EKG, a fib at [address]/T-wave changes inferolaterally. 01/28/18 21:48 Reviewed repeat EKG following medication, NSR at 91 bpm. Non-specific T-wave changes. Prolonged QT. 01/28/18 23:40 CXR reviewed, shows no acute processes. 01/29/18 00:[address] Blanco, who is aware and agrees with plan. Accepts pt in to his service. Pt will go to Telemetry observation for rapid atrial fibrillation and chest pain. Requests Dr. Lacy on consult. - Critical Care Critical Care Minutes: 30 minutes - Lab Interpretations Lab Results: 01/28/18 21:20 Lab Results 01/28/18 21:20: Sodium 142, Potassium 3.8, Chloride 105, Carbon Dioxide 27, Anion Gap 14, BUN 20, Creatinine 1.7 H, Est GFR ( Amer) 49, Est GFR (Non- Af Amer) 41, Random Glucose 208 H, Calcium 9.5, Total Bilirubin 0.4, AST 87 H D, ALT 53, Alkaline Phosphatase 106, Lactate Dehydrogenase 660, Total Creatine Kinase 70, Troponin I Pending, NT-Pro-B Natriuret Pep Pending, Total Protein 8.3, Albumin 4.3, Globulin 4.0, Albumin/Globulin Ratio 1.1 I have reviewed the lab results: Yes - RAD Interpretation Radiology Orders: 01/28/18 21:22 CHEST PORTABLE [RAD] Stat Neurosurgical Nurse: ED Physician - EKG Interpretation Interpreted by ED Physician: Yes Type: 12 lead EKG - Medication Orders Current Medication Orders: diltiaZEM IVPB 100mg in NS (Cardizem 100mg In Ns) 100 mls @ 5 mls/hr IV .Q20H PRN; Protocol PRN Reason: TITRATE PER MD ORDER Last Admin: 01/28/18 21:42 Dose: 5 mls/hr eMAR Start Stop Document 01/28/18 21:42 JOL (Rec: 01/28/18 21:43 JOL [id number]) Intravenous Solution Start Date 01/28/18 Start Time 21:43 Discontinued Medications Diltiazem HCl (Cardizem) 25 mg IVP ONCE ONE Stop: 01/28/18 21:24 Last Admin: 01/28/18 21:31 Dose: 25 mg IVP Administration Document 01/28/18 21:31 JOL (Rec: 01/28/18 21:31 JOL [id number]) Charges for Administration # of IVP Administrations 1 JUN Pulse and Blood Pressure Document 01/28/18 21:[address] [facility] (Rec: 01/28/18 21:31 [id number] Pulse Pulse Rate (60-90 beats/min) 156 Blood Pressure Blood Pressure (100/60-150/90 mm Hg) 192/130 - Scribe Statement The provider has reviewed the documentation as recorded by the Scribe Annika Reilly All medical record entries made by the Scribe were at my direction and personally dictated by me. I have reviewed the chart and agree that the record accurately reflects my personal performance of the history, physical exam, medical decision making, and the department course for this patient. I have also personally directed, reviewed, and agree with the discharge instructions and disposition. Disposition/Present on Arrival - Present on Arrival Any Indicators Present on Arrival: No History of DVT/PE: No History of Uncontrolled Diabetes: No Urinary Catheter: No History of Decub. Ulcer: No History Surgical Site Infection Following: None - Disposition Have Diagnosis and Disposition been Completed?: Yes Diagnosis: Chest pain, Paroxysmal atrial fibrillation with rapid ventricular response Disposition: HOSPITALIZED Disposition Time: 00:52 Condition: STABLE Discharge Instructions (ExitCare): Chest Pain (ED) Forms: [employer] (Tajik)
[2018-01-28 21:55] LABS: TROPONIN I 0.05 ng/mL
[2018-01-28 22:16] LABS: INR 1.11; PROTHROMBIN TIME 12.7 SECONDS (9.4-12.5)
[2018-01-28 22:17] LABS: PARTIAL THROMBOPLASTIN TIME 29.1 Seconds (25.1-36.5)
--- NOTE | 2018-01-29 07:34 | CP.PCM.HP ---
Addendum entered and electronically signed by Ceferino Pollock DO 01/29/18 14:29: patient is on therapeutic dose of Lovenox Original Note: <Ceferino Pollock - Last Filed: 01/29/18 14:24> History of Present Illness - History of Present Illness History of Present Illness: Ceferino Pollock DO, PGY-2: HPI for Dr. Stuart 67 year old male with a past medical history of CAD s/p 4 stents, hypertension, active smoker, and CKD III who presented to [facility] yesterday via Ambulance after experiencing left sided chest pain that radiated to his neck while he was cleaning dishes at his home at 7:45 PM. The pain remained constant, and at 8:15 he told his girlfriend to call the ambulance. He reports not experiencing any concurrent dyspnea, lightheadedness, nausea, visual changes, or unilateral weakness or numbness. He denies having any upper respiratory symptoms such as a cough, sore throat, or fever. He reports the pain reminded him of the pain he experienced the first time he had an NC in February 2016. In the ambulance he was noted to be in SVT with HR in the 180s, and was given IVP of Adenosine which converted his rhythm to what appeared to be atrial fibrillation. In the ED he was given 25 mg of Dilitiazem, Aspirin 325, and kept on a Diltiazem drip. Upon examination this morning he is comfortable without chest pain or palpitations with telemetry heart monitor showing HR of 60 bpm. 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; denies illicit drug use Present on Admission - Present on Admission Any Indicators Present on Admission: No Review of Systems - Review of Systems All systems: reviewed and no additional remarkable complaints except (as per HPI) Past Patient History - Infectious Disease Hx of Infectious Diseases: None - Tetanus Immunizations Tetanus Immunization: Unknown - Past Social History Smoking Status: Light Smoker < 10 Cigarettes Daily - CARDIAC Hx Heart Attack: Yes (CC x 3 stents) Hx Hypertension: Yes Hx Pacemaker: No - PULMONARY Hx Respiratory Disorders: Yes (SMOKES 3 CIGA A DAY.) Other/Comment: Smoker - NEUROLOGICAL Hx Paralysis: No - HEENT Hx HEENT Problems: Yes (LEFT CATARACT SX) Hx Cataracts: Yes (WITH LEFT EYE SX) - RENAL Hx Chronic Kidney Disease: Yes (CKD 3) - ENDOCRINE/METABOLIC Hx Endocrine Disorders: No - HEMATOLOGICAL/ONCOLOGICAL Hx Blood Transfusions: No - INTEGUMENTARY Hx Dermatological Problems: No - MUSCULOSKELETAL/RHEUMATOLOGICAL Hx Musculoskeletal Disorders: No Hx Falls: No - GASTROINTESTINAL Hx Gastrointestinal Disorders: No - GENITOURINARY/GYNECOLOGICAL Hx Genitourinary Disorders: No - PSYCHIATRIC Hx Psychophysiologic Disorder: No Hx Depression: No Hx Emotional Abuse: No Hx Physical Abuse: No Hx Substance Use: No - SURGICAL HISTORY Other/Comment: Cardiac cath x 3 stents - ANESTHESIA Hx Anesthesia: Yes Hx Anesthesia Reactions: No Hx Malignant Hyperthermia: No Meds Allergies/Adverse Reactions: Allergies Allergy/AdvReac Type Severity Reaction Status Date / Time No Known Allergies Allergy Verified 01/28/18 21:17 Physical Exam - Constitutional Appears: Well, Non-toxic, No Acute Distress - Head Exam Head Exam: ATRAUMATIC - Eye Exam Eye Exam: EOMI, Normal appearance - ENT Exam ENT Exam: Mucous Membranes Moist, Normal Oropharynx - Neck Exam Neck exam: Positive for: Normal Inspection - Respiratory Exam Respiratory Exam: Clear to Auscultation Bilateral, NORMAL BREATHING PATTERN. absent: Accessory Muscle Use - Cardiovascular Exam Cardiovascular Exam: RRR, +S1, +S2 - GI/Abdominal Exam GI & Abdominal Exam: Normal Bowel Sounds, Soft - Extremities Exam Extremities exam: Positive for: normal inspection. Negative for: calf tenderness, pedal edema - Neurological Exam Neurological exam: Alert, CN II-XII Intact, Oriented x3 - Psychiatric Exam Psychiatric exam: Normal Affect, Normal Mood - Skin Skin Exam: Dry, Intact, Normal Color, Warm Results - Vital Signs Recent Vital Signs: Last Vital Signs Temp 97.4 F L 01/28/18 21:23 Pulse 92 H 01/28/18 23:16 Resp 15 01/28/18 23:16 BP 162/102 H 01/28/18 23:16 Pulse Ox 97 01/28/18 23:16 - Labs Result Diagrams: 01/28/18 21:20 01/29/18 07:20 Labs: Laboratory Results - last 24 hr 01/28/18 01/28/18 01/28/18 21:20 21:20 21:20 WBC 8.5 D RBC 5.37 Hgb 16.5 Hct 48.7 MCV 90.7 MCH 30.7 MCHC 33.9 RDW 13.6 Plt Count 174 MPV 10.5 PT 12.7 H INR 1.11 APTT 29.1 Sodium 142 Potassium 3.8 Chloride 105 Carbon Dioxide 27 Anion Gap 14 BUN 20 Creatinine 1.7 H Est GFR ( Amer) 49 Est GFR (Non-Af Amer) 41 Random Glucose 208 H Calcium 9.5 Total Bilirubin 0.4 AST 87 H D ALT 53 Alkaline Phosphatase 106 Lactate Dehydrogenase 660 Total Creatine Kinase 70 Troponin I 0.05 D NT-Pro-B Natriuret Pep 233 Total Protein 8.3 Albumin 4.3 Globulin 4.0 Albumin/Globulin Ratio 1.1 Assessment & Plan - Assessment and Plan (Free Text) Assessment: 67 year old male with a past medical history of CAD, hypertension, active smoking, and CKD stage III who presented with left sided chest pain and was found to be have SVT with HR in the 180s which converted to atrial fibrillation. Initial tropinin was negative, while second troponin was 5.01. Dr. Aguilar, ca rdiology is on the case, and has given the patient a therapeutic dose of Lovenox the plan is for the patient to have cardiac catheterization tomorrow. Plan: 1) NSTEMI in patient with known CAD - Repeat EKG showed no STEMI; second troponin came back positive - one dose of therapeutic Lovenox started by cardiology - Consider loading dose of Plavix 600 mg, Aspirin 325, and Atorvastatin 80 mg once - Cardiology is following - Continue Oxygen nasal cannula - Patient is on 100 mls/hr of NS - Echocardiogram performed, not interpreted - CC planned for tomorrow - NPO after midnight 2) New-onset atrial fibrillation likely secondary to ischemic coronary event - Metoprolol Tartarate 25 mg BID - Lovenox therapeutic dose given - Diltiazem drip discontinued - Defer current treatment to cardiology at this time - TSH 4.51 - CHADS-VASC score is 2 with annual risk of stroke 2.2% - HASBLED score places patient at 4.1% percent of having major bleed - Continue with aspirin and plavix 3) Dyslipidemia - Atorvastatin high intensity 80 mg HS 4) CKD - Avoid Nephrotoxins - Continue with NS 100 mls/hr to prevent BOYD given patient is going for cardiac catheterization tomorrow 5) Smoking cessation counselling - Patient reports smoking 4 to 5 cigarettes a day - Discussed use of 7 mg nicotine patch versus quitting cold turkey Case was reviewed and discussed with attending physician, Dr. Stuart Further recommendation per Dr. Stuart - Date & Time Date: 01/29/18 Time: 09:36 <Milad Stuart - Last Filed: 01/29/18 15:17> Results - Vital Signs Recent Vital Signs: Last Vital Signs Temp 98.6 F 01/29/18 14:32 Pulse 118 H 01/29/18 14:32 Resp 19 01/29/18 14:32 BP 157/96 H 01/29/18 14:32 Pulse Ox 97 01/28/18 23:16 - Labs Result Diagrams: 01/28/18 21:20 01/29/18 07:20 Labs: Laboratory Results - last 24 hr 01/28/18 01/28/18 01/28/18 21:20 21:20 21:20 WBC 8.5 D RBC 5.37 Hgb 16.5 Hct 48.7 MCV 90.7 MCH 30.7 MCHC 33.9 RDW 13.6 Plt Count 174 MPV 10.5 PT 12.7 H INR 1.11 APTT 29.1 Sodium 142 Potassium 3.8 Chloride 105 Carbon Dioxide 27 Anion Gap 14 BUN 20 Creatinine 1.7 H Est GFR ( Amer) 49 Est GFR (Non-Af Amer) 41 Random Glucose 208 H Calcium 9.5 Total Bilirubin 0.4 AST 87 H D ALT 53 Alkaline Phosphatase 106 Lactate Dehydrogenase 660 Total Creatine Kinase 70 Troponin I 0.05 D NT-Pro-B Natriuret Pep 233 Total Protein 8.3 Albumin 4.3 Globulin 4.0 Albumin/Globulin Ratio 1.1 TSH 3rd Generation 01/29/18 01/29/18 07:20 07:20 WBC RBC Hgb Hct MCV MCH MCHC RDW Plt Count MPV PT INR APTT Sodium 143 Potassium 3.9 Chloride 107 Carbon Dioxide 28 Anion Gap 12 BUN 21 Creatinine 1.6 H Est GFR ( Amer) 53 Est GFR (Non-Af Amer) 44 Random Glucose 149 H Calcium 9.3 Total Bilirubin AST ALT Alkaline Phosphatase Lactate Dehydrogenase Total Creatine Kinase Troponin I 5.10 H* D NT-Pro-B Natriuret Pep Total Protein Albumin Globulin Albumin/Globulin Ratio TSH 3rd Generation 4.51 Assessment & Plan - Assessment and Plan (Free Text) Plan: Pt seen and examined. I have reviewed the note of the registered medical assistant and agree with it. I have discussed the assessment and plan with the resident. I have reviewed the patient's labs and medications. Pt with CP and new onset A fib. ER notes have been reviewed. Ptis on Metoprolol and Diltiazem for the A fib. TSH is normal. The pt went into sinus rhythm later this morning. He does have an elevated trop. Will most likely need cath. I spoke to Dr Aguilar this morning from cardiology. Pt with CKD-3 and will have to be careful with LMWH usage. He will have his Atorvastatin increased. He was advised to quit smoking. The pt does not have chest pain at this time.
[2018-01-29 07:51] LABS: CALCIUM 9.3 mg/dL (8.4-10.5)
[2018-01-29 08:36] LABS: TROPONIN I 5.1 ng/mL
[2018-01-29] MEDS ORDERED: Enoxaparin 120 mg Syringe SC ONE ×2 (09:00→20:00)
--- NOTE | 2018-01-29 10:11 | RAD ---
Date of service: 01/28/2018 HISTORY: tachycardia COMPARISON: Chest radiographs 02/23/2017. FINDINGS: LUNGS: No active pulmonary disease. PLEURA: No significant pleural effusion identified, no pneumothorax apparent. CARDIOVASCULAR: No aortic atherosclerotic calcification present Cardiomediastinal silhouette appears somewhat prominent, possibly on the basis of technical magnification given frontal technique. No pulmonary vascular congestion. Clinically correlate further. OSSEOUS STRUCTURES: No significant abnormalities. VISUALIZED UPPER ABDOMEN: Normal. OTHER FINDINGS: None. IMPRESSION: No interval acute pulmonary disease appreciated bilaterally. No pulmonary vascular congestion. Cardiac silhouette appears somewhat more prominent but this may be on the basis of frontal technique related magnification. Clinically correlate.
--- NOTE | 2018-01-29 10:20 | CARD ---
APPROVED REPORT Date of service: 01/28/2018 EKG Measurement Heart [id number] <Conclusion> Atrial fibrillation with rapid ventricular response, new Right axis deviation PRWP STTW changes c/w ischemia, new c/w ECG 02/22/17
--- NOTE | 2018-01-29 10:39 | CARD ---
APPROVED REPORT Date of service: 01/29/2018 EKG Measurement Heart [id number] <Conclusion> Normal sinus rhythm PRWP NSSTW changes Prolonged QTc No change
--- NOTE | 2018-01-29 10:45 | CARD ---
APPROVED REPORT Date of service: 01/28/2018 EKG Measurement Heart [id number] <Conclusion> Normal sinus rhythm, new Possible Left atrial enlargement ST- T wave abnormality c/w ischemia Prolonged QT
--- NOTE | 2018-01-29 16:04 | CARD ---
APPROVED REPORT Date of service: 01/29/2018 EXAM: Two-dimensional and M-mode echocardiogram with Doppler and color Doppler. INDICATION Chest Pain NSTEMI,PAF 2D DIMENSIONS Left Atrium (2D)4.2 (1.6-4.0cm)IVSd1.5 (0.7-1.1cm) LVDd4.3 (3.9-5.9cm)PWd1.5 (0.7-1.1cm) LVDs2.8 (2.5-4.0cm)FS (%) 34.3 % LVEF (%)63.6 (>50%) M-Mode DIMENSIONS Aortic Root3.30 (2.2-3.7cm)Aortic Cusp Exc.1.70 (1.5-2.0cm) Aortic Valve AoV Peak Pvyjplmf633.0cm/Mario Peak GR.10mmHgLVOT Peak Guyxqdmi508.0cm/s LVOT VTI24.40cm Mitral Valve MV E Kbnaambo89.7cm/sMV A Wbhpivdu27.8cm/sE/A ratio0.7 TDI Lateral E' Peak V4.29cm/sMedial E' Peak V4.29cm/sE/Lateral E'14.6 E/Medial E'14.6 Pulmonary Valve PV Peak Vncbjopq77.0cm/sPV Peak Grad.2mmHg Tricuspid Valve TR Peak Crtxanji704tj/sRAP [id number] Peak Gr.17mmHg BQUH54zyVl LEFT VENTRICLE The left ventricle is normal size. There is moderate concentric left ventricular hypertrophy. The left ventricular function is normal. The left ventricular ejection fraction is within the normal range. There is normal LV segmental wall motion. RIGHT VENTRICLE The right ventricle is normal size. The right ventricular systolic function is normal. ATRIA The left atrium is mildly dilated. The right atrium size is normal. The interatrial septum is intact with no evidence for an atrial septal defect. AORTIC VALVE The aortic valve is normal in structure. No aortic regurgitation is present. There is no aortic valvular stenosis. MITRAL VALVE The mitral valve is normal in structure. There is no mitral valve regurgitation noted. TRICUSPID VALVE The tricuspid valve is normal in structure. There is mild tricuspid regurgitation. PULMONIC VALVE The pulmonary valve is normal in structure. GREAT VESSELS The aortic root is normal in size. The IVC is normal in size and collapses >50% with inspiration. PERICARDIAL EFFUSION There is no pleural effusion. There is no pericardial effusion. <Conclusion> Dilated LA. Normal LV size and systolic function. Moderate concentric LVH. Mild TR.
[2018-01-29 16:08] LABS: PH,URINE 5.5 (4.7-8.0); URINE BILIRUBIN NEGATIVE (NEGATIVE); URINE BLOOD LARGE (NEGATIVE); URINE GLUCOSE (UA) NEGATIVE (NEGATIVE); URINE LEUKOCYTE ESTERASE TRACE Leu/uL (NEGATIVE); URINE PROTEIN 30 mg/dL (<30 mg/dL); URINE UROBILINOGEN 0.2 E.U./dL (<1 E.U./dL)
[2018-01-29 16:10] LABS: URINE APPEARANCE SLIGHT-CLOUDY (CLEAR); URINE COLOR DARK YELLOW (YELLOW)
[2018-01-29 16:22] LABS: URINE BACTERIA TRACE (NEG); URINE RBC TNTC /hpf (0-2)
--- NOTE | 2018-01-29 19:35 | CON ---
DATE: 01/29/2018 INDICATIONS: Chest pain, paroxysmal atrial fibrillation. HISTORY OF PRESENT ILLNESS: This is a 67-year-old man known to our practice, admitted yesterday when he presented with sudden onset of pressure-like chest pain in the upper chest, radiating into his neck and back down into the chest. He came to the emergency room. He was found to have SVT at 180. He was treated with IV adenosine and ultimately converted to sinus rhythm. His chest pain subsided. He was admitted to telemetry. A second troponin is positive. This morning, he feels well. There was no further chest pain or shortness of breath. There is no orthopnea, PND, syncope, presyncope, lightheadedness, dizziness, vertigo, palpitation, edema, or claudication. There is no fever, chills, cough, sputum production, hemoptysis. No abdominal pain, nausea, vomiting, diarrhea, constipation, or melena. PAST MEDICAL HISTORY: Notable for coronary artery disease. He has had several stents placed in 02/2017 and 04/2017. He has a history of hypertension, hyperlipidemia. He is a current smoker. He has [id number]-[id number] mitral regurgitation on echocardiogram. He has had cataract surgery and eyelid surgery. There is no history of rheumatic fever, congestive heart failure, stroke, TIA, diabetes, or gout. MEDICATIONS: Include aspirin, losartan, Lipitor, metoprolol, Plavix, Tylenol. ALLERGIES: THERE WERE NO MEDICATION ALLERGIES. SOCIAL HISTORY: He lives at home. He is ambulatory. He smokes cigarettes. He uses alcohol on social occasions. He is retired. FAMILY HISTORY: Noncontributory. REVIEW OF SYSTEMS: The 10-point review of systems is unremarkable except as noted above. PHYSICAL EXAMINATION: GENERAL: He is a well-developed man, sitting on his bed in telemetry, in no acute distress. VITAL SIGNS: Notable for atrial fib at 92 to 106 beats per minute. He is afebrile. Blood pressure 162/102, respirations 15, O2 saturations 97% to 98% on nasal cannula and room air. HEENT: Exam reveals no neck vein distention, thyromegaly, carotid bruits. Mucous membranes are moist. Conjunctivae pink. NECK: Supple. LUNGS: Lung sanders clear throughout. HEART: Examination of the heart revealed an irregular rhythm. Normal first and second heart sounds. Soft systolic murmur along the left sternal border. PMI not palpable. ABDOMEN: Soft. Bowel sounds present. No mass, organomegaly, tenderness, rebound, guarding, CVA tenderness, or palpable abdominal aortic aneurysm. EXTREMITIES: Revealed no cyanosis, clubbing, or edema. NEUROLOGIC: Awake, alert, and oriented. PSYCHIATRIC: Normal as to mood and affect. SKIN: Warm and dry. No rash or cellulitis. LABORATORY AND IMAGING: Chest x-ray is a portable study. It is not read yet. The lungs are clear. No infiltrate or effusion by my reading. EKG demonstrates SVT at 155 beats per minute. There were ST-T wave changes consistent with ischemia. CBC is unremarkable. PT/INR, PTT unremarkable. Electrolytes: BUN and creatinine unremarkable except for creatinine of 1.7, repeat 1.6. AST is mildly elevated at 87. Troponin 0.05, repeat this morning 5.10. CK was 70. TSH is normal. IMPRESSION: Quentin Alberts is a 67-year-old man with known coronary artery disease, several stents about a year ago, who presents with sudden onset of chest pain associated with supraventricular tachycardia with rapid ventricular response, the rate slowed with adenosine. He has no further symptoms at this time. The second troponin is elevated. I will repeat his EKG and repeat a troponin later today. I would plan for a cardiac catheterization, probably tomorrow morning. He is getting aspirin, losartan, Lipitor, metoprolol. I will give him Lovenox today. He is getting amlodipine and Plavix. I will order an echocardiogram. I will review his old records. We will monitor I's and O's. Check stool for occult blood. I will follow along with you, make additional recommendations based on his clinical course. Jeffrey Aguilar MD MTD[facility]
[2018-01-30] MEDS: Sodium Chloride 0.9% 500 ML IV SCH ×3 (05:27→17:27)
[2018-01-30 07:31] LABS: ALBUMIN 3.7 g/dL (3.0-4.8); CALCIUM 8.9 mg/dL (8.4-10.5)
[2018-01-30 08:15] LABS: TROPONIN I 1.61 ng/mL
[2018-01-30] MEDS ORDERED: Midazolam 2 MG/2 ML VIAL ONE ×2 (08:23→08:32)
[2018-01-30] MEDS ORDERED: Lidocaine 2% PF (10 ml) Amp ONE (08:23)
[2018-01-30] MEDS ORDERED: Iodixanol 320 MG/ML 200 ML BOTTLE IV ONE (08:24)
--- NOTE | 2018-01-30 08:48 | CP.PCM.PN ---
Subjective - Date & Time of Evaluation Date of Evaluation: 01/30/18 Time of Evaluation: 07:00 - Subjective Subjective: Ceferino Pollock DO, PGY-2: Progress for Dr. Stuart Patient was seen and examined at bedside. Patient denies any chest pain, nausea, vomiting, or palpitations in the interim. Nurse reports patient was observed to be in normal sinus rhythm through-out the course of the night. Patient is scheduled for coronary catheterization today. Objective - Vital Signs/Intake and Output Vital Signs (last 24 hours): Temp Pulse Resp BP Pulse Ox 97.8 F 82 20 159/95 H 99 01/30/18 06:00 01/30/18 07:30 01/30/18 06:00 01/30/18 07:30 01/30/18 06:00 Intake and Output: 01/30/18 01/30/18 06:59 18:59 Intake Total 390 Output Total 0 Balance 390 - Medications Medications: Current Medications Amlodipine Besylate (Norvasc) 5 mg PO DAILY [facility] Last Admin: 01/29/18 11:29 Dose: 5 mg Aspirin (Aspirin Chewable) 81 mg PO DAILY [facility] Last Admin: 01/30/18 07:30 Dose: 81 mg Atorvastatin Calcium (Lipitor) 80 mg PO DIN [facility] Last Admin: 01/29/18 17:20 Dose: 80 mg Clopidogrel Bisulfate (Plavix) 75 mg PO DAILY [facility] Last Admin: 01/30/18 07:30 Dose: 75 mg Sodium Chloride (Sodium Chloride 0.9%) 500 mls @ 100 mls/hr IV .Q5H [facility] Last Admin: 01/30/18 05:27 Dose: 100 mls/hr Losartan Potassium (Cozaar) 100 mg PO DAILY [facility] Last Admin: 01/29/18 11:29 Dose: 100 mg Metoprolol Tartrate (Lopressor) 25 mg PO BID [facility] Last Admin: 01/30/18 07:30 Dose: 25 mg - Labs Labs: 01/28/18 21:20 01/30/18 06:00 PT 12.7 SECONDS (9.4-12.5) H 01/28/18 21:20 INR 1.11 01/28/18 21:20 APTT 29.1 Seconds (25.1-36.5) 01/28/18 21:20 - Constitutional Appears: Non-toxic, No Acute Distress - Head Exam Head Exam: ATRAUMATIC, NORMOCEPHALIC - Eye Exam Eye Exam: EOMI, Normal appearance - ENT Exam ENT Exam: Mucous Membranes Moist - Neck Exam Neck Exam: Normal Inspection - Respiratory Exam Respiratory Exam: Rales (mild), NORMAL BREATHING PATTERN. absent: Accessory Muscle Use - Cardiovascular Exam Cardiovascular Exam: RRR, +S1, +S2 - GI/Abdominal Exam GI & Abdominal Exam: Soft, Normal Bowel Sounds - Extremities Exam Extremities Exam: absent: Calf Tenderness Additional comments: 1/4 pitting edema - Neurological Exam Neurological Exam: Alert, Awake, Oriented x3 - Psychiatric Exam Psychiatric exam: Normal Affect, Normal Mood - Skin Skin Exam: Dry, Intact, Normal Color, Warm Assessment and Plan - Assessment and Plan (Free Text) Assessment: 67 year old male with a past medical history of CAD, hypertension, active smoking, and CKD stage III who presented with left sided chest pain and was fo und to be have SVT with HR in the 180s which converted to atrial fibrillation. Initial tropinin was negative, while second troponin was 5.01. Cardiology performed cardiac catheterization which showed no stent-able lesions. Plan: 1) NSTEMI in patient with known CAD - Repeat EKG showed no STEMI; second troponin came back positive - Atorvastatin 80 mg HS - Metoprolol 25 mg BID - Losartan 100 mg PO daily - Continue Oxygen nasal cannula - Patient is on 100 mls/hr of NS; will continue to prevent BOYD - Echocardiogram showed dilated left atrium, moderate concentric LVH, and estimated ejection fraction of 63% - Cardiac catheterization did not require stents 2) New-onset atrial fibrillation likely secondary to ischemic coronary event - Metoprolol Tartarate 25 mg BID - Lovenox therapeutic dose given - Diltiazem drip discontinued - Defer current treatment to cardiology at this time - TSH 4.51 - CHADS-VASC score is 2 with annual risk of stroke 2.2% - HASBLED score places patient at 4.1% percent of having major bleed - Continue with aspirin and plavix 3) Dyslipidemia - Atorvastatin high intensity 80 mg HS 4) CKD - Avoid Nephrotoxins - Continue with NS 100 mls/hr to prevent BOYD 5) Smoking cessation counselling - Patient reports smoking 4 to 5 cigarettes a day - Discussed use of 7 mg nicotine patch versus quitting cold turkey Case was reviewed and discussed with attending physician, Dr. Grijalva (who is covering for Dr. Kim)
--- NOTE | 2018-01-30 13:37 | CARDCATH ---
PROCEDURE DATE: 01/30/2018 PROCEDURES: 1. Selective left and right coronary arteriography. 2. Left ventriculography. 3. Right femoral arteriography. 4. Mynx deployment. HISTORY: This is a 67-year-old male with known coronary artery disease, who was admitted yesterday with supraventricular tachycardia and chest pain. His troponin cristino to 5 and a cardiac catheterization was advised. INDICATIONS: As above. FINDINGS: HEMODYNAMICS: The patient aortic pressure was 140/70, left ventricular pressure of 140/16. CORONARY ANATOMY: 1. The left mainstem was normal. 2. The left anterior descending artery had mild irregularities proximally. There was a patent stent in the early mid portion followed by a long diffuse area of 50-60% stenosis. Beyond this, a stent in the early distal segment of the vessel was patent as well. The LAD had a small-sized first obtuse marginal branch, which had a 90% proximal stenosis. 3. Left circumflex artery was a large vessel. The previously placed stents in the mid portion of the vessel as well as in the first obtuse marginal branches were widely patent. 4. The right coronary artery was dominant. This had evidence of mild diffuse irregularities. The posterior descending artery was a fairly small vessel. LEFT VENTRICULOGRAPHY: Hand injection was performed in the left ventricle revealing normal wall motion with ejection fraction of 65%. There was no aortic valve gradient noted on catheter pullback. Mitral regurgitation was not assessed. CONCLUSION: 1. Patent left anterior descending and left circumflex artery stents. Severe small diagonal disease. 2. Moderate mid left anterior descending stenosis. 3. Preserved left ventricular systolic function. RECOMMENDATIONS: Given the above findings, continued medical therapy appears mostly appropriate for his coronary artery disease. The need for aggressive risk factor control, especially smoking abstinence was discussed with him. Kwasi Lacy MD cc: Milad Stuart MD
--- NOTE | 2018-01-30 16:33 | PN ---
DATE: 01/30/2018 SUBJECTIVE: The patient is seen lying in bed. He is comfortable at the present time. He has had no recurrent tachycardia and denies any chest pain. Followup troponin this morning is 1.6. CURRENT MEDICATIONS: Include aspirin, Cozaar 100 mg daily, Lipitor 80 mg daily, metoprolol 25 mg b.i.d., Norvasc 5 mg daily, Plavix 75 mg daily. PHYSICAL EXAMINATION: GENERAL: He is a middle-aged man, appears comfortable at the present time. VITAL SIGNS: Blood pressure is 134/84, pulse of 60 and sinus, respirations are 16. He is afebrile. HEENT: No JVD. CHEST: Bilateral scattered rhonchi. HEART: Soft systolic murmur is present at left sternal border. ABDOMEN: Soft, nontender. Normoactive bowel sounds. EXTREMITIES: No edema. DIAGNOSTIC DATA: Echocardiogram revealed normal LV size, systolic function with mildly dilated left atrium, moderate concentric LVH, and mild tricuspid regurgitation. BUN and creatinine are 25 and 1.9. Troponin 1.61. Potassium is 3.6. AST and ALT 106 and 61. IMPRESSION: 1. Known coronary artery disease status post prior multivessel percutaneous coronary intervention with troponin elevation in the setting of supraventricular tachycardia suggestive of non-ST segment elevation myocardial fraction. 2. Paroxysmal supraventricular tachycardia with no recurrence. Currently on low-dose metoprolol. He does have a prior resting bradycardia, which may limit additional dosing. 3. Continued tobacco abuse. 4. Elevated transaminases. RECOMMENDATIONS: Cardiac catheterization will be planned for this morning and PCI will be performed if suitable lesion is found. His current medications will be continued for now. Further recommendations will be made based upon those results. Tobacco abstinence was strongly encouraged. We will continue to follow as needed. Kwasi Lacy MD
[2018-01-30] MEDS: Sodium Chloride 0.9% 1,000 ML IV SCH (17:27)
[2018-01-31] MEDS: Sodium Chloride 0.9% 1,000 ML IV SCH (03:03)
[2018-01-31 05:52] VITALS: O2SAT 100
[2018-01-31 07:13] LABS: ALB/GLOB RATIO 1.1 (1.1-1.8); ALBUMIN 3.7 g/dL (3.0-4.8); BASO # 0.04 K/mm3 (0.0-2.0); BASO % 0.6 % (0.0-3.0); CALCIUM 8.7 mg/dL (8.4-10.5); EOS # 0.5 (0.0-0.7); EOS % 6.9 % (1.5-5.0); GRAN # 5.2 (1.4-6.5); GRAN % 74.9 % (50.0-68.0); LYMPH # 0.8 (1.2-3.4); LYMPH % 11.1 % (22.0-35.0); MEAN CELL VOLUME 91.4 fl (80.0-105.0); MEAN CORPUSCULAR HEMOGLOBIN 29.9 pg (25.0-35.0); MEAN CORPUSCULAR HGB CONC 32.6 g/dl (31.0-37.0); MEAN PLATELET VOLUME 10.5 fl (7.0-11.0); MONO # 0.5 (0.1-0.6); MONO % 6.5 % (1.0-6.0); RBC 4.79 10^6/uL (3.5-6.1); RED CELL DISTRIBUTION WIDTH 13.6 % (11.5-14.5); WHITE BLOOD COUNT 6.9 10^3/ul (4.5-11.0)
[2018-01-31 07:19] LABS: HEMOGLOBIN 14.3 g/dL (14.0-18.0)
--- NOTE | 2018-01-31 08:51 | CP.PCM.PN ---
Subjective - Date & Time of Evaluation Date of Evaluation: 01/31/18 Time of Evaluation: 07:00 - Subjective Subjective: Stable s/p cath yesterday. See report. severe prox lesion in small diag. br. Medical tx and d/c tob advised. No CP or SOB. No groin sxs. V/S noted. RSR PE: Lungs: clear Cor.: S1S2 Abd.: soft Ext.: no edema Neuro.: alert I/O: 1870/1250 Labs: K+= 3.7, Cr.= 1.5 Objective - Vital Signs/Intake and Output Vital Signs (last 24 hours): Temp Pulse Resp BP Pulse Ox 98.4 F 80 18 158/92 H 100 01/31/18 05:51 01/31/18 05:51 01/31/18 05:51 01/31/18 05:51 01/31/18 05:51 Intake and Output: 01/31/18 01/31/18 06:59 18:59 Intake Total 1168 Output Total 1250 Balance -82 - Medications Medications: Current Medications Amlodipine Besylate (Norvasc) 5 mg PO DAILY [facility] Last Admin: 01/30/18 10:21 Dose: 5 mg Aspirin (Aspirin Chewable) 81 mg PO DAILY [facility] Last Admin: 01/30/18 10:06 Dose: Not Given Atorvastatin Calcium (Lipitor) 80 mg PO DIN [facility] Last Admin: 01/30/18 18:14 Dose: 80 mg Clonidine HCl (Catapres) 0.1 mg PO Q6 PRN PRN Reason: Blood pressure Clopidogrel Bisulfate (Plavix) 75 mg PO DAILY [facility] Last Admin: 01/30/18 10:13 Dose: Not Given Sodium Chloride (Sodium Chloride 0.9%) 1,000 mls @ 100 mls/hr IV .Q10H [facility] Stop: 01/31/18 11:59 Last Admin: 01/31/18 03:03 Dose: 100 mls/hr Losartan Potassium (Cozaar) 100 mg PO DAILY [facility] Last Admin: 01/30/18 10:21 Dose: 100 mg Metoprolol Tartrate (Lopressor) 25 mg PO BID [facility] Last Admin: 01/30/18 18:14 Dose: 25 mg - Labs Labs: 01/31/18 06:30 01/31/18 06:30 PT 12.7 SECONDS (9.4-12.5) H 01/28/18 21:20 INR 1.11 01/28/18 21:20 APTT 29.1 Seconds (25.1-36.5) 01/28/18 21:20 Assessment and Plan - Assessment and Plan (Free Text) Assessment: CP/SVT/PAF NSTEMI CAD/PCIs/residual severe diag br. stenosis (Small Vessel) and 50 - 60 % mid LAD. Stents patent. HBP HLD Smoker Cataract Surgery Plan: As per Dr. Lacy: medical Tx., D/C Tobacco! OK for D/C home today. Out-pt cardiology f/u next week. Continue current cardiac meds.
[2018-01-31] MEDS ORDERED: Influenza Vaccine 60 mcg/0.5 mL SYR (4YR UP) IM ONE (10:36)
[2018-01-31] MEDS ORDERED: Pneumococcal 23-Valent Vaccine IM ONE (10:37)
[2018-01-31 12:27] VITALS: PULSE 71; RESP 20; TEMP 98.7
[2018-01-31 13:22] VITALS: BP 133/89
== END 2018-01-31 13:59 | disposition home or self-care (01) | DRG 281 ==
LOC: ED 21:15 → ERH 01-29 00:48 → 2RNO 01-29 06:29 → 2RSO 01-30 09:10 → OBSVTOIN 01-30 15:35 → 2RSO 01-30 20:18
PROVIDERS: ADMIT Internal Medicine Nephrology; ATTEND Internal Medicine Nephrology
PROC: 4A023N7 Measurement of Cardiac Sampling and Pressure, Left Heart, Percutaneous Approach (ICD-10-PCS; principal; 2018-01-30)
PROC: B211YZZ Fluoroscopy of Multiple Coronary Arteries using Other Contrast (ICD-10-PCS; 2018-01-30)
PROC: B215YZZ Fluoroscopy of Left Heart using Other Contrast (ICD-10-PCS; 2018-01-30)
PROC: 3E02340 Introduction of Influenza Vaccine into Muscle, Percutaneous Approach (ICD-10-PCS; 2018-01-31)
PROC: 3E0234Z Introduction of Serum, Toxoid and Vaccine into Muscle, Percutaneous Approach (ICD-10-PCS; 2018-01-31)
DX: I21.4 Non-ST elevation (NSTEMI) myocardial infarction (principal); I47.1 Supraventricular tachycardia; I25.10 Atherosclerotic heart disease of native coronary artery without angina pectoris; I48.0 Paroxysmal atrial fibrillation; I12.9 Hypertensive chronic kidney disease with stage 1 through stage 4 chronic kidney disease, or unspecified chronic kidney disease; N18.3 Chronic kidney disease, stage 3 (moderate); E78.5 Hyperlipidemia, unspecified; I34.0 Nonrheumatic mitral (valve) insufficiency; F17.210 Nicotine dependence, cigarettes, uncomplicated; I25.2 Old myocardial infarction; Z95.5 Presence of coronary angioplasty implant and graft; Z23 Encounter for immunization

== ENCOUNTER 2018-02-12 20:16 | Observation (INO) | payer MEDICARE, OTHER ==
[2018-02-12 20:28] VITALS: BMI 34.4
[2018-02-12] MEDS ORDERED: Nitroglycerin 2% Ointment Foilpak UD TOP STA (20:37)
--- NOTE | 2018-02-12 20:49 | ED PDOC ---
Arrival/HPI - General Chief Complaint: Palpitations Time Seen by Provider: 02/12/18 20:23 Historian: Patient - History of Present Illness Narrative History of Present Illness (Text): 02/12/18 20:25 67 year old active smoker male, whose past medical history includes CAD s/p stents, hypertension, hyperlipidemia, and CKD III, presents to the emergency department complaining of shortness of breath, chest tightness, and palpitations that began 2-3 hours ago. The patient denies any fever, chills, abdominal pain, nausea, vomiting, diarrhea, urinary symptoms, back pain, neck pain, headache, dizziness, or any other complaints. PMD: Dr. Stuart Time/Duration: Other (2-3 hours ago) Symptom Onset: Sudden Symptom Course: Unchanged Activities at Onset: Light Context: Home Past Medical History - Provider Review Nursing Documentation Reviewed: Yes - Infectious Disease Hx of Infectious Diseases: None - Tetanus Immunization Tetanus Immunization: Unknown - Cardiac Hx SC: Yes (CC x 3 stents) Hx Hypertension: Yes Hx Pacemaker: No - Pulmonary Hx Respiratory Disorders: Yes (SMOKES 3 CIGA A DAY.) Other/Comment: Smoker - Neurological Hx Paralysis: No - HEENT Hx HEENT Disorder: Yes (LEFT CATARACT SX) Hx Cataracts: Yes (WITH LEFT EYE SX) - Renal Hx Renal Disorder: Yes (CKD 3) - Endocrine/Metabolic Hx Endocrine Disorders: No - Hematological/Oncological Hx Blood Transfusions: No - Integumentary Hx Dermatological Disorder: No - Musculoskeletal/Rheumatological Hx Musculoskeletal Disorders: No Hx Falls: No - Gastrointestinal Hx Gastrointestinal Disorders: No - Genitourinary/Gynecological Hx Genitourinary Disorders: No - Psychiatric Hx Psychophysiologic Disorder: No Hx Depression: No Hx Emotional Abuse: No Hx Physical Abuse: No Hx Substance Use: No - Past Surgical History Past Surgical History: Non-Contributing - Surgical History Other/Comment: Cardiac cath x 3 stents - Anesthesia Hx Anesthesia: Yes Hx Anesthesia Reactions: No Hx Malignant Hyperthermia: No - Suicidal Assessment Feels Threatened In Home Enviroment: No Family/Social History - Physician Review Nursing Documentation Reviewed: Yes Family/Social History: No Known Family HX Smoking Status: Light Smoker < 10 Cigarettes Daily Hx Alcohol Use: Yes (socially) Hx Substance Use: No Hx Substance Use Treatment: No Allergies/Home Meds Allergies/Adverse Reactions: Allergies No Known Allergies Allergy (Verified 01/28/18 21:17) Review of Systems - Physician Review All systems were reviewed & negative as marked: Yes - Review of Systems Constitutional: absent: Fevers, Other (Chills) Respiratory: SOB Cardiovascular: Chest Pain, Palpitations Gastrointestinal: absent: Abdominal Pain, Nausea, Vomiting Genitourinary Male: absent: Dysuria, Frequency, Hematuria Musculoskeletal: absent: Back Pain, Neck Pain Neurological: absent: Headache, Dizziness Physical Exam Vital Signs Reviewed: Yes Vital Signs Temp Pulse Resp BP Pulse Ox 02/12/18 20:28 98.4 F 119 H 20 181/108 H 98 Temperature: Afebrile Blood Pressure: Hypertensive Pulse: Tachycardic Respiratory Rate: Normal Appearance: Positive for: Well-Appearing, Non-Toxic, Comfortable Pain Distress: None Mental Status: Positive for: Alert and Oriented X 3 - Systems Exam Head: Present: Atraumatic, Normocephalic Pupils: Present: PERRL Extroacular Muscles: Present: EOMI Conjunctiva: Present: Normal Mouth: Present: Moist Mucous Membranes Neck: Present: Normal Range of Motion Respiratory/Chest: Present: Clear to Auscultation, Good Air Exchange. No: Respiratory Distress, Accessory Muscle Use Cardiovascular: Present: Tachycardic. No: Murmurs Abdomen: No: Tenderness, Distention, Peritoneal Signs Back: Present: Normal Inspection Upper Extremity: Present: Normal Inspection. No: Cyanosis, Edema Lower Extremity: Present: Normal Inspection. No: Edema Neurological: Present: GCS=15, CN II-XII Intact, Speech Normal Skin: Present: Warm, Dry, Normal Color. No: Rashes Psychiatric: Present: Alert, Oriented x 3, Normal Insight, Normal Concentration Medical Decision Making ED Course and Treatment: 02/12/18 20:25 Impression: 67 year old male presents complaining of shortness of breath, chest tightness, and palpitations that began 2-3 hours ago. Plan: -- EKG -- Labs -- CXR -- Nitro-Bod 2% -- Oxygen theraphy via Nasal Cannula -- Reassess and disposition Prior Visits: Notes and results from previous visits were reviewed. On 01/28/18 patient came in complaining of left-sided chest discomfort with associated palpitations. Patient was admitted. Progress Notes: 02/12/18 20:24 EKG shows Sinus tachycardia at 119 BPM with non-specific ST/T wave changes. Interpreted by me 02/12/18 21:33 CXR Impression: As read by DIEGO rocha. 02/12/18 22:[address] Stuart who is aware and agrees with the plan. Accepts patient into his service. Request Dr. Lacy for consult. - Lab Interpretations I have reviewed the lab results: Yes - RAD Interpretation Radiology Orders: 02/12/18 20:36 CHEST PORTABLE [RAD] Stat - EKG Interpretation Interpreted by ED Physician: Yes Type: 12 lead EKG - Medication Orders Current Medication Orders: Discontinued Medications Nitroglycerin (Nitro-Bid 2% Oint) 1 ea TOP ONCE STA Stop: 02/12/18 20:38 - Scribe Statement The provider has reviewed the documentation as recorded by the Laura Mcgraw Provider Scribe Attestation: All medical record entries made by the Scribe were at my direction and personally dictated by me. I have reviewed the chart and agree that the record accurately reflects my personal performance of the history, physical exam, medical decision making, and the department course for this patient. I have also personally directed, reviewed, and agree with the discharge instructions and disposition.\ Disposition/Present on Arrival - Present on Arrival Any Indicators Present on Arrival: No History of DVT/PE: No History of Uncontrolled Diabetes: No Urinary Catheter: No History of Decub. Ulcer: No History Surgical Site Infection Following: None - Disposition Have Diagnosis and Disposition been Completed?: Yes Diagnosis: Chest pain Disposition: HOSPITALIZED Disposition Time: 22:10 Condition: GOOD
[2018-02-12 21:03] LABS: ALB/GLOB RATIO 1.1 (1.1-1.8); ALBUMIN 4.3 g/dL (3.0-4.8); CALCIUM 9.1 mg/dL (8.4-10.5)
[2018-02-12 21:04] LABS: BASO # 0.04 K/mm3 (0.0-2.0); BASO % 0.4 % (0.0-3.0); EOS # 0.6 (0.0-0.7); EOS % 6.1 % (1.5-5.0); GRAN # 7.92 (1.4-6.5); GRAN % 75.2 % (50.0-68.0); HEMOGLOBIN 16.9 g/dL (14.0-18.0); LYMPH # 1.5 (1.2-3.4); LYMPH % 14.5 % (22.0-35.0); MEAN CELL VOLUME 89.7 fl (80.0-105.0); MEAN CORPUSCULAR HEMOGLOBIN 30.6 pg (25.0-35.0); MEAN CORPUSCULAR HGB CONC 34.1 g/dl (31.0-37.0); MEAN PLATELET VOLUME 10.8 fl (7.0-11.0); MONO # 0.4 (0.1-0.6); MONO % 3.8 % (1.0-6.0); RBC 5.53 10^6/uL (3.5-6.1); RED CELL DISTRIBUTION WIDTH 13.5 % (11.5-14.5); WHITE BLOOD COUNT 10.5 10^3/uL (4.5-11.0)
[2018-02-12 21:06] LABS: INR 1.05; PARTIAL THROMBOPLASTIN TIME 31.1 Seconds (25.1-36.5)
[2018-02-12 21:12] LABS: TROPONIN I 0.02 ng/mL
[2018-02-12] MEDS ORDERED: Potassium Chloride 20 mEq ER Tab PO STA (23:47)
[2018-02-13 06:27] VITALS: O2SAT 96
--- NOTE | 2018-02-13 07:28 | CP.PCM.HP ---
<Ceferino Pollock - Last Filed: 02/13/18 09:47> History of Present Illness - History of Present Illness History of Present Illness: Ceferino Pollock DO, PGY-2: HPI for Dr. Stuart 67 year old male with a past medical history of CAD s/p 4 stents, hypertension, active smoker, and CKD III who presented to [facility] [place] yesterday after he developed left sided chest pain after he smoked a cigarette in anticipation of doing the dishes at 6:00 pm. The pain was pressure-like, radiated to the neck, accompanied with dyspnea and did not improve with rest. He waited for two hours, and the pain did not resolve so he came to the ED. He was found to be in sinus tachycardia, with no EKG changes manufacturer's service representative of ischemia. The patient was recently admitted less than three weeks ago for NSTEMI and underwent a coronary catheterization that did show disease, but warranted no stents. Important to note, the patient reports not taking any of his medications yesterday. He also does not have nitroglycerin tablets for angina. He reports that his pain resolved at 9:00 PM. He denies any headache, nausea, vomiting, fever, chills, abdominal pain, visual changes, changes in hearing, hair loss, polydipsia, polyuria or unilateral weakness or numbness. 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; denies illicit drug use Present on Admission - Present on Admission Any Indicators Present on Admission: No Review of Systems - Review of Systems All systems: reviewed and no additional remarkable complaints except (as per HPI) Past Patient History - Infectious Disease Hx of Infectious Diseases: None - Tetanus Immunizations Tetanus Immunization: Unknown - Past Social History Smoking Status: Light Smoker < 10 Cigarettes Daily - CARDIAC Hx Cardiac Disorders: Yes Hx Hypercholesterolemia: Yes Hx Hypertension: Yes - PULMONARY Hx Respiratory Disorders: Yes (SMOKES 3 CIGA A DAY.) Other/Comment: Smoker - NEUROLOGICAL Hx Neurological Disorder: Yes Hx Dizziness: Yes - HEENT Hx HEENT Problems: Yes (LEFT CATARACT SX) Hx Cataracts: Yes (WITH LEFT EYE SX) - RENAL Hx Chronic Kidney Disease: Yes (CKD 3) - ENDOCRINE/METABOLIC Hx Endocrine Disorders: No - HEMATOLOGICAL/ONCOLOGICAL Hx Blood Disorders: No - INTEGUMENTARY Hx Dermatological Problems: No - MUSCULOSKELETAL/RHEUMATOLOGICAL Hx Falls: No - GASTROINTESTINAL Hx Gastrointestinal Disorders: No - GENITOURINARY/GYNECOLOGICAL Hx Genitourinary Disorders: No - PSYCHIATRIC Hx Psychophysiologic Disorder: No Hx Depression: No Hx Emotional Abuse: No Hx Physical Abuse: No - SURGICAL HISTORY Hx Surgeries: Yes Hx Cardiac Catheterization: Yes Other/Comment: Cardiac cath x 3 stents - ANESTHESIA Hx Anesthesia: Yes Hx Anesthesia Reactions: No Hx Malignant Hyperthermia: No Meds Allergies/Adverse Reactions: Allergies Allergy/AdvReac Type Severity Reaction Status Date / Time No Known Allergies Allergy Verified 01/28/18 21:17 Physical Exam - Constitutional Appears: Non-toxic, No Acute Distress - Head Exam Head Exam: ATRAUMATIC, NORMOCEPHALIC - Eye Exam Eye Exam: EOMI, Normal appearance - ENT Exam ENT Exam: Mucous Membranes Moist - Neck Exam Neck exam: Positive for: Normal Inspection - Respiratory Exam Respiratory Exam: Clear to Auscultation Bilateral, NORMAL BREATHING PATTERN. absent: Accessory Muscle Use - Cardiovascular Exam Cardiovascular Exam: RRR, +S1, +S2 - GI/Abdominal Exam GI & Abdominal Exam: Normal Bowel Sounds, Soft - Extremities Exam Extremities exam: Positive for: normal inspection. Negative for: calf tenderness - Back Exam Back exam: NORMAL INSPECTION. absent: CVA tenderness (L) - Neurological Exam Neurological exam: Alert, CN II-XII Intact, Oriented x3 - Psychiatric Exam Psychiatric exam: Normal Affect, Normal Mood - Skin Skin Exam: Dry, Intact, Normal Color, Warm Results - Vital Signs Recent Vital Signs: Last Vital Signs Temp 97.8 F 02/13/18 06:00 Pulse 64 02/13/18 06:00 Resp 19 02/13/18 06:00 BP 143/100 H 02/13/18 06:00 Pulse Ox 96 02/13/18 06:00 - Labs Result Diagrams: 02/12/18 20:45 02/12/18 20:45 Labs: Laboratory Results - last 24 hr 02/12/18 02/12/18 02/12/18 20:45 20:45 20:45 WBC 10.5 RBC 5.53 Hgb 16.9 D Hct 49.6 MCV 89.7 MCH 30.6 MCHC 34.1 RDW 13.5 Plt Count 193 MPV 10.8 Gran % 75.2 H Lymph % (Auto) 14.5 L Lassen % (Auto) 3.8 Eos % (Auto) 6.1 H Baso % (Auto) 0.4 Gran # 7.92 H Lymph # (Auto) 1.5 Lassen # (Auto) 0.4 Eos # (Auto) 0.6 Baso # (Auto) 0.04 PT 12.0 INR 1.05 APTT 31.1 Sodium 142 Potassium 3.4 L Chloride 105 Carbon Dioxide 26 Anion Gap 15 BUN 22 H Creatinine 1.7 H Est GFR ( Amer) 49 Est GFR (Non-Af Amer) 41 Random Glucose 274 H Calcium 9.1 Total Bilirubin 0.5 AST 84 H ALT 60 H Alkaline Phosphatase 117 Lactate Dehydrogenase 634 Total Creatine Kinase 78 Troponin I 0.02 D Total Protein 8.3 Albumin 4.3 Globulin 4.0 Albumin/Globulin Ratio 1.1 Assessment & Plan - Assessment and Plan (Free Text) Assessment: 67 year old male with a past medical history of CAD, CKD III, hypertension, obesity, active smoking, and medication non-compliance who presents with chest pain with radiation to the neck that resolved with Nitropaste. Cardiology was consulted. Plan: 1) Chest pain in a patient with known CAD - Initial EKG showed sinus tachycardia without EKG changes manufacturer's service representative of ischemia - Second troponin indeterminate - Cardiology consulted 2) CAD - Metoprolol 25 mg BID - Aspirin 81 - Plavix 75 - Atorvastatin 80 mg - Consider Imdur 3) Hypertension - Amlodipine 10 mg - Losartan 100 mg 4) CKD III - Avoid Nephrotoxins 5) Active smoker - 7 mg nicotine patch to be given as an outpatient - Smoking cessation counselling provided for greater than 3 minutes 6) Hyperglycemia - Noted now on multiple visits - HgbA1c recommended as an outpatient 7) DVT prophylaxis - SCD Case was reviewed and discussed with attending physician, Dr. Stuart - Date & Time Date: 02/13/18 Time: 06:50 <Milad Stuart - Last Filed: 02/13/18 20:15> Results - Vital Signs Recent Vital Signs: Last Vital Signs Temp 98.0 F 02/13/18 12:00 Pulse 63 02/13/18 14:00 Resp 21 02/13/18 12:00 BP 147/97 H 02/13/18 12:00 Pulse Ox 96 02/13/18 06:00 - Labs Result Diagrams: 02/12/18 20:45 02/12/18 20:45 Labs: Laboratory Results - last 24 hr 02/12/18 02/12/18 02/12/18 20:45 20:45 20:45 WBC 10.5 RBC 5.53 Hgb 16.9 D Hct 49.6 MCV 89.7 MCH 30.6 MCHC 34.1 RDW 13.5 Plt Count 193 MPV 10.8 Gran % 75.2 H Lymph % (Auto) 14.5 L Lassen % (Auto) 3.8 Eos % (Auto) 6.1 H Baso % (Auto) 0.4 Gran # 7.92 H Lymph # (Auto) 1.5 Lassen # (Auto) 0.4 Eos # (Auto) 0.6 Baso # (Auto) 0.04 PT 12.0 INR 1.05 APTT 31.1 Sodium 142 Potassium 3.4 L Chloride 105 Carbon Dioxide 26 Anion Gap 15 BUN 22 H Creatinine 1.7 H Est GFR ( Amer) 49 Est GFR (Non-Af Amer) 41 POC Glucose (mg/dL) Random Glucose 274 H Calcium 9.1 Total Bilirubin 0.5 AST 84 H ALT 60 H Alkaline Phosphatase 117 Lactate Dehydrogenase 634 Total Creatine Kinase 78 Troponin I 0.02 D Total Protein 8.3 Albumin 4.3 Globulin 4.0 Albumin/Globulin Ratio 1.1 02/13/18 02/13/18 02/13/18 07:43 09:00 11:35 WBC RBC Hgb Hct MCV MCH MCHC RDW Plt Count MPV Gran % Lymph % (Auto) Lassen % (Auto) Eos % (Auto) Baso % (Auto) Gran # Lymph # (Auto) Lassen # (Auto) Eos # (Auto) Baso # (Auto) PT INR APTT Sodium Potassium Chloride Carbon Dioxide Anion Gap BUN Creatinine Est GFR ( Amer) Est GFR (Non-Af Amer) POC Glucose (mg/dL) 120 H 188 H Random Glucose Calcium Total Bilirubin AST ALT Alkaline Phosphatase Lactate Dehydrogenase Total Creatine Kinase Troponin I 0.07 D Total Protein Albumin Globulin Albumin/Globulin Ratio Assessment & Plan - Assessment and Plan (Free Text) Plan: Pt seen and examined. I have reviewed the note of the medical grade shoemaker and agree with it. I have discussed the assessment and plan with the resident. I have reviewed the patient's labs and medications. Pt with CP for admission. He was not taking his medications and started to have CP. He was advised to adhere to his medications. Pt is on Nicotine Patch for smoking. HTN is controlled with Amlodipine and Losartan. Cardiology consulted.
[2018-02-13] MEDS ORDERED: Insulin Reg-LOW-Coverage SC SCH (07:30)
--- NOTE | 2018-02-13 08:53 | RAD ---
Date of service: 02/12/2018 HISTORY: cp COMPARISON: 01/28/2018 FINDINGS: LUNGS: No active pulmonary disease. PLEURA: No significant pleural effusion identified, no pneumothorax apparent. CARDIOVASCULAR: No aortic atherosclerotic calcification present. Normal cardiac size. No pulmonary vascular congestion. OSSEOUS STRUCTURES: No significant abnormalities. VISUALIZED UPPER ABDOMEN: Normal. OTHER FINDINGS: None. IMPRESSION: No active disease.
--- NOTE | 2018-02-13 10:12 | CARD ---
APPROVED REPORT Date of service: 02/12/2018 EKG Measurement Heart [id number] <Conclusion> Sinus tachycardia Possible Left atrial enlargement Left posterior fascicular block Nonspecific ST abnormality Abnormal ECG
--- NOTE | 2018-02-13 11:26 | CP.PCM.DIS ---
<Ceferino Pollock - Last Filed: 02/13/18 11:26> Provider - Provider Date of Admission: 02/12/18 22:14 Attending physician: Milad Stuart MD Primary care physician: Milad Stuart MD Consults: Dr. Calvert Time Spent in preparation of Discharge (in minutes): 35 Diagnosis - Discharge Diagnosis (1) Chest pain Status: Acute Hospital Course - Lab Results Lab Results: Most Recent Lab Values WBC 10.5 10^3/uL (4.5-11.0) 02/12/18 20:45 RBC 5.53 10^6/uL (3.5-6.1) 02/12/18 20:45 Hgb 16.9 g/dL (14.0-18.0) D 02/12/18 20:45 Hct 49.6 % (42.0-52.0) 02/12/18 20:45 MCV 89.7 fl (80.0-105.0) 02/12/18 20:45 MCH 30.6 pg (25.0-35.0) 02/12/18 20:45 MCHC 34.1 g/dl (31.0-37.0) 02/12/18 20:45 RDW 13.5 % (11.5-14.5) 02/12/18 20:45 Plt Count 193 10^3/uL (120.0-450.0) 02/12/18 20:45 MPV 10.8 fl (7.0-11.0) 02/12/18 20:45 Gran % 75.2 % (50.0-68.0) H 02/12/18 20:45 Lymph % (Auto) 14.5 % (22.0-35.0) L 02/12/18 20:45 [place] % (Auto) 3.8 % (1.0-6.0) 02/12/18 20:45 Eos % (Auto) 6.1 % (1.5-5.0) H 02/12/18 20:45 Baso % (Auto) 0.4 % (0.0-3.0) 02/12/18 20:45 Gran # 7.92 (1.4-6.5) H 02/12/18 20:45 Lymph # (Auto) 1.5 (1.2-3.4) 02/12/18 20:45 [place] # (Auto) 0.4 (0.1-0.6) 02/12/18 20:45 Eos # (Auto) 0.6 (0.0-0.7) 02/12/18 20:45 Baso # (Auto) 0.04 K/mm3 (0.0-2.0) 02/12/18 20:45 PT 12.0 SECONDS (9.4-12.5) 02/12/18 20:45 INR 1.05 02/12/18 20:45 APTT 31.1 Seconds (25.1-36.5) 02/12/18 20:45 Sodium 142 mmol/L (132-148) 02/12/18 20:45 Potassium 3.4 mmol/L (3.6-5.0) L 02/12/18 20:45 Chloride 105 mmol/L (98-107) 02/12/18 20:45 Carbon Dioxide 26 mmol/L (21-33) 02/12/18 20:45 Anion Gap 15 (10-20) 02/12/18 20:45 BUN 22 mg/dL (7-21) H 02/12/18 20:45 Creatinine 1.7 mg/dl (0.8-1.5) H 02/12/18 20:45 Est GFR ( Amer) 49 02/12/18 20:45 Est GFR (Non-Af Amer) 41 02/12/18 20:45 POC Glucose (mg/dL) 120 mg/dL (65-110) H 02/13/18 07:43 Random Glucose 274 mg/dL (70-110) H 02/12/18 20:45 Calcium 9.1 mg/dL (8.4-10.5) 02/12/18 20:45 Total Bilirubin 0.5 mg/dL (0.2-1.3) 02/12/18 20:45 AST 84 U/L (17-59) H 02/12/18 20:45 ALT 60 U/L (7-56) H 02/12/18 20:45 Alkaline Phosphatase 117 U/L (38-126) 02/12/18 20:45 Lactate Dehydrogenase 634 U/L (333-699) 11/06/18 20:45 Total Creatine Kinase 78 U/L (35-230) 02/12/18 20:45 Troponin I 0.07 ng/mL D 02/13/18 09:00 Total Protein 8.3 g/dL (5.8-8.3) 02/12/18 20:45 Albumin 4.3 g/dL (3.0-4.8) 02/12/18 20:45 Globulin 4.0 gm/dL 02/12/18 20:45 Albumin/Globulin Ratio 1.1 (1.1-1.8) 02/12/18 20:45 - Hospital Course Hospital Course: Ceferino Pollock DO, PGY-2: HPI for Dr. Stuart 67 year old male with a past medical history of CAD s/p 4 stents, hypertension, active smoker, and CKD III who presented [place] [facility] [place] after he developed left sided chest pain after he smoked a cigarette in anticipation of doing the dishes at 6:00 pm. The pain was pressure-like, radiated to the neck, accompanied with dyspnea and did not improve with rest. He waited for two hours, and the pain did not resolve so he came to the ED. He was found to be in sinus tachycardia, with no EKG changes national account representative of ischemia. The patient was recently admitted less than three weeks ago for NSTEMI and underwent a coronary catheterization that did show disease, but warranted no stents. Important to note, the patient reports not taking any of his medications yesterday. He also does not have nitroglycerin tablets for angina. He reports that his pain resolved at 9:00 PM. He denies any headache, nausea, vomiting, fever, chills, abdominal pain, visual changes, changes in hearing, hair loss, polydipsia, polyuria or unilateral weakness or numbness. Cardiology was consulted and thought the patient's chest pain was not cardiac in origin. Cardiology provided the patient with a prescription of sublingual nitroglycerin. Troponins x 2 were negative. The patient was counselled on smoking cessation and provided a prescription of 7 mg Nicotine patch, quantity 30, to help him with quitting smoking. Patient was strongly advised to take his medication as directed. We increased his Amlodipine to 10 mg daily. He will follow up with Dr. Calvert's office this Sunday02/15/18. - Date & Time of H&P Date of H&P: 02/13/18 Time of H&P: 11:31 Discharge Exam - Head Exam Head Exam: ATRAUMATIC, NORMOCEPHALIC - Eye Exam Eye Exam: EOMI, Normal appearance - ENT Exam ENT Exam: Mucous Membranes Moist - Respiratory Exam Respiratory Exam: Clear to PA & Lateral, NORMAL BREATHING PATTERN. absent: Accessory Muscle Use - Cardiovascular Exam Cardiovascular Exam: RRR, +S1, +S2 - GI/Abdominal Exam GI & Abdominal Exam: Normal Bowel Sounds. absent: Guarding - Extremities Exam Extremities exam: normal inspection - Back Exam Back exam: NORMAL INSPECTION. absent: CVA tenderness (L), CVA tenderness (R) - Neurological Exam Neurological exam: Alert, CN II-XII Intact, Oriented x3 - Psychiatric Exam Psychiatric exam: Normal Affect, Normal Mood - Skin Skin Exam: Dry, Intact, Normal Color, Warm Discharge Plan - Discharge Medications Prescriptions: RX: Nicotine 7 mg/24 hr [Nicoderm CQ] 7 mg TD DAILY #30 patch Nitroglycerin [Nitrostat SL Tab] 0.3 mg SL Q5MIN PRN #100 tab.subl PRN Reason: chest pain - Follow Up Plan Condition: GOOD Disposition: HOME/ ROUTINE Instructions: Palpitations, Quitting Smoking, Chest Pain (DC) Additional Instructions: 1) Patient has an appointment with Dr. Calvert/Lauren's office this 02/15/18. 2) Patient was provided with a prescription of sublingual Nitroglycerin by Dr. Calvert 3) Patient is to return to the ED for any return or worsening of symptoms. 4) Patient was advised to take Amlodipine 10 mg daily. Referrals: Milad Stuart MD [Primary Care Provider] - <Milad Stuart - Last Filed: 02/13/18 20:06> Provider - Provider Date of Admission: 02/12/18 22:14 Attending physician: Milad Stuart MD Primary care physician: Milad Stuart MD Hospital Course - Lab Results Lab Results: Most Recent Lab Values WBC 10.5 10^3/uL (4.5-11.0) 02/12/18 20:45 RBC 5.53 10^6/uL (3.5-6.1) 02/12/18 20:45 Hgb 16.9 g/dL (14.0-18.0) D 02/12/18 20:45 Hct 49.6 % (42.0-52.0) 02/12/18 20:45 MCV 89.7 fl (80.0-105.0) 02/12/18 20:45 MCH 30.6 pg (25.0-35.0) 02/12/18 20:45 MCHC 34.1 g/dl (31.0-37.0) 02/12/18 20:45 RDW 13.5 % (11.5-14.5) 02/12/18 20:45 Plt Count 193 10^3/uL (120.0-450.0) 02/12/18 20:45 MPV 10.8 fl (7.0-11.0) 02/12/18 20:45 Gran % 75.2 % (50.0-68.0) H 02/12/18 20:45 Lymph % (Auto) 14.5 % (22.0-35.0) L 02/12/18 20:45 [place] % (Auto) 3.8 % (1.0-6.0) 02/12/18 20:45 Eos % (Auto) 6.1 % (1.5-5.0) H 02/12/18 20:45 Baso % (Auto) 0.4 % (0.0-3.0) 02/12/18 20:45 Gran # 7.92 (1.4-6.5) H 02/12/18 20:45 Lymph # (Auto) 1.5 (1.2-3.4) 02/12/18 20:45 [place] # (Auto) 0.4 (0.1-0.6) 02/12/18 20:45 Eos # (Auto) 0.6 (0.0-0.7) 02/12/18 20:45 Baso # (Auto) 0.04 K/mm3 (0.0-2.0) 02/12/18 20:45 PT 12.0 SECONDS (9.4-12.5) 02/12/18 20:45 INR 1.05 02/12/18 20:45 APTT 31.1 Seconds (25.1-36.5) 02/12/18 20:45 Sodium 142 mmol/L (132-148) 02/12/18 20:45 Potassium 3.4 mmol/L (3.6-5.0) L 02/12/18 20:45 Chloride 105 mmol/L (98-107) 02/12/18 20:45 Carbon Dioxide 26 mmol/L (21-33) 02/12/18 20:45 Anion Gap 15 (10-20) 02/12/18 20:45 BUN 22 mg/dL (7-21) H 02/12/18 20:45 Creatinine 1.7 mg/dl (0.8-1.5) H 02/12/18 20:45 Est GFR ( Amer) 49 02/12/18 20:45 Est GFR (Non-Af Amer) 41 02/12/18 20:45 POC Glucose (mg/dL) 188 mg/dL (65-110) H 02/13/18 11:35 Random Glucose 274 mg/dL (70-110) H 02/12/18 20:45 Calcium 9.1 mg/dL (8.4-10.5) 02/12/18 20:45 Total Bilirubin 0.5 mg/dL (0.2-1.3) 02/12/18 20:45 AST 84 U/L (17-59) H 02/12/18 20:45 ALT 60 U/L (7-56) H 02/12/18 20:45 Alkaline Phosphatase 117 U/L (38-126) 02/12/18 20:45 Lactate Dehydrogenase 634 U/L (333-699) 02/12/18 20:45 Total Creatine Kinase 78 U/L (35-230) 02/12/18 20:45 Troponin I 0.07 ng/mL D 02/13/18 09:00 Total Protein 8.3 g/dL (5.8-8.3) 02/12/18 20:45 Albumin 4.3 g/dL (3.0-4.8) 02/12/18 20:45 Globulin 4.0 gm/dL 02/12/18 20:45 Albumin/Globulin Ratio 1.1 (1.1-1.8) 02/12/18 20:45 - Hospital Course Hospital Course: Pt seen and examined. I have reviewed the note of the medical laboratory technicians and agree with it. I have discussed the assessment and plan with the resident. I have reviewed the patient's labs and medications. Pt with CP on admission and now is improved. Pt has been nonadherent to his medications. . He was advised to quit smoking. He was told to take Nicotine Patch. BP is controlled with Amlodipine. He was seen by cardiology and will f/u with Dr Simpson. He has had a cath done that I reviewed.
[2018-02-13 14:02] VITALS: BP 147/97; RESP 21; TEMP 98
[2018-02-13 14:43] VITALS: PULSE 63
--- NOTE | 2018-02-13 21:59 | CON ---
DATE: 02/13/2018 CONSULTATION REQUESTED BY: . REASON FOR CONSULTATION: Chest pain. HISTORY: This is a 67-year-old man known to me with history of coronary artery disease status post remote multivessel PCI as well as a history of hypertension, tobacco abuse and chronic renal insufficiency who presents to the emergency room complaining of chest discomfort yesterday. He states that the pain began at rest and radiated into his left neck. The pain lasted for several hours and he became concerned and presented to the emergency room. Initial EKG showed no significant abnormalities and the cardiac enzymes have been negative. He underwent cardiac catheterization several weeks ago at which time he was found to have patent stents with side branch disease. Medical therapy was advised. He continues to smoke. PAST MEDICAL HISTORY: His past history is known for the problems mentioned above. MEDICATIONS: Include Cozaar, Ecotrin, insulin coverage, Lipitor, metoprolol, Norvasc, Plavix. ALLERGIES: None. SOCIAL HISTORY: He is an active smoker. He denies alcohol use. FAMILY HISTORY: Both parents are age from age-related illness. REVIEW OF SYSTEMS: A 10-point review of systems is notable mainly for the problems mentioned above.. PHYSICAL EXAMINATION: GENERAL: He is an overweight middle-aged man. VITAL SIGNS: His blood pressure is 140/96 with a pulse of 70 and sinus respirations of 18. He is afebrile. HEENT: No JVD. CHEST: Few scattered rhonchi heard. HEART: PMI displaced laterally. No pathological murmurs or gallops noted. ABDOMEN: Soft, mildly obese, nontender with bowel sounds. EXTREMITIES: No edema. DIAGNOSTIC DATA: Electrocardiogram reveals sinus rhythm with no significant abnormalities. Chest x-ray reveals normal cardiac silhouette with clear lung sanders. White count is 10.5, hematocrit 16.9 and 49.6 with platelet count of 193,000. PT/PTT normal. Potassium 3.4, has been replaced. BUN and creatinine 22 and 1.7. Two sets of cardiac enzymes are negative. IMPRESSION : 1. Chest pain; sounds more likely not cardiac in nature given its characteristics. 2. Known coronary disease status post multivessel PCI with patent stents and significant side branch disease. 3. Active tobacco abuse. 4. History of hypertension. 5. History of chronic renal insufficiency. RECOMMENDATIONS: From a cardiac standpoint, he appears stable for discharge home at this time. Use of sublingual nitroglycerin was discussed with him in the event he has recurrent chest pain. Outpatient followup has arranged. Smoking abstinence was strongly encouraged. Kwasi Lacy MD
== END 2018-02-13 14:45 | disposition home or self-care (01) ==
LOC: ED 20:16 → ERH 22:14 → 2RNO 02-13 00:33
PROVIDERS: ADMIT Internal Medicine Nephrology; ATTEND Internal Medicine Nephrology
DX: R07.89 Other chest pain (principal); I25.10 Atherosclerotic heart disease of native coronary artery without angina pectoris; I12.9 Hypertensive chronic kidney disease with stage 1 through stage 4 chronic kidney disease, or unspecified chronic kidney disease; N18.3 Chronic kidney disease, stage 3 (moderate); E78.00 Pure hypercholesterolemia, unspecified; E78.5 Hyperlipidemia, unspecified; R73.9 Hyperglycemia, unspecified; R00.0 Tachycardia, unspecified; F17.210 Nicotine dependence, cigarettes, uncomplicated; I25.2 Old myocardial infarction; Z91.14 Patient's other noncompliance with medication regimen; Z95.5 Presence of coronary angioplasty implant and graft; Z98.42 Cataract extraction status, left eye
CPT/HCPCS: 36415; 71045; 80053; 82550; 82948; 83615; 84484; 85025; 85610; 85730; 93005; 99285; G0378

== ENCOUNTER 2018-04-10 17:10 | Inpatient (IN) | payer MEDICARE, OTHER ==
[2018-04-10 17:15] VITALS: BMI 34.7
--- NOTE | 2018-04-10 17:46 | ED PDOC ---
Arrival/HPI - General Chief Complaint: Palpitations Time Seen by Provider: 04/10/18 17:28 Historian: Patient - History of Present Illness Narrative History of Present Illness (Text): 04/10/18 17:43 67 year old active smoker male, whose past medical history includes CAD (4 stents), A-fib, hypertension, hyperlipidemia, and CKD III, presents to the emergency department complaining of dizziness, palpitations, and dyspnea on exertion, since yesterday. Patient states he was walking yesterday when he began to feel dizzy, short of breath, and he reports secondary dry mouth. Patient denies fevers, chills, headache, chest pain, cough, abdominal pain, nausea, vomiting, diarrhea, back pain, neck pain, or any other complaint. PMD: Dr. Turner Time/Duration: 24 hours Symptom Onset: Gradual Symptom Course: Unchanged Activities at Onset: Light Context: Walking Past Medical History - Provider Review Nursing Documentation Reviewed: Yes - Infectious Disease Hx of Infectious Diseases: None - Tetanus Immunization Tetanus Immunization: Unknown - Cardiac Hx WA: Yes (4 stents) Hx Hypertension: Yes Hx Pacemaker: No - Pulmonary Hx Respiratory Disorders: Yes (SMOKES 3 CIGA A DAY.) Other/Comment: Smoker - Neurological Hx Paralysis: No - HEENT Hx HEENT Disorder: Yes (LEFT CATARACT SX) Hx Cataracts: Yes (WITH LEFT EYE SX) - Renal Hx Renal Disorder: Yes (CKD 3) - Endocrine/Metabolic Hx Endocrine Disorders: No - Hematological/Oncological Hx Blood Transfusions: No - Integumentary Hx Dermatological Disorder: No - Musculoskeletal/Rheumatological Hx Musculoskeletal Disorders: No Hx Falls: No - Gastrointestinal Hx Gastrointestinal Disorders: No - Genitourinary/Gynecological Hx Genitourinary Disorders: No - Psychiatric Hx Psychophysiologic Disorder: No Hx Depression: No Hx Emotional Abuse: No Hx Physical Abuse: No Hx Substance Use: No - Past Surgical History Past Surgical History: Non-Contributing - Surgical History Other/Comment: Cardiac cath x 4 stents - Anesthesia Hx Anesthesia: Yes Hx Anesthesia Reactions: No Hx Malignant Hyperthermia: No - Suicidal Assessment Feels Threatened In Home Enviroment: No Family/Social History - Physician Review Nursing Documentation Reviewed: Yes Family/Social History: No Known Family HX Smoking Status: Light Smoker < 10 Cigarettes Daily Hx Alcohol Use: Yes (socially) Hx Substance Use: No Hx Substance Use Treatment: No Allergies/Home Meds Allergies/Adverse Reactions: Allergies No Known Allergies Allergy (Verified 01/28/18 21:17) Home Medications: Home Meds Medication Instructions Recorded Confirmed amLODIPine [Norvasc] 10 mg PO BID 04/10/18 04/10/18 Review of Systems - Physician Review All systems were reviewed & negative as marked: Yes - Review of Systems Constitutional: absent: Fevers Respiratory: SOB Cardiovascular: Palpitations. absent: Chest Pain Gastrointestinal: absent: Abdominal Pain, Nausea, Vomiting Musculoskeletal: absent: Back Pain, Neck Pain Neurological: Dizziness. absent: Headache Physical Exam Vital Signs Reviewed: Yes Vital Signs Temp Pulse Resp BP Pulse Ox 04/10/18 17:11 97.9 F 91 H 18 143/90 95 Temperature: Afebrile Blood Pressure: Normal Pulse: Tachycardic Respiratory Rate: Normal Appearance: Positive for: Well-Appearing, Non-Toxic, Comfortable Pain Distress: None Mental Status: Positive for: Alert and Oriented X 3 - Systems Exam Head: Present: Atraumatic, Normocephalic Pupils: Present: PERRL Extroacular Muscles: Present: EOMI Conjunctiva: Present: Normal Mouth: Present: Dry Neck: Present: Normal Range of Motion Respiratory/Chest: Present: Clear to Auscultation, Good Air Exchange. No: Respiratory Distress, Accessory Muscle Use Cardiovascular: Present: Regular Rate and Rhythm, Normal S1, S2, Other (no JVD present ). No: Murmurs Abdomen: No: Tenderness, Distention, Peritoneal Signs Back: Present: Normal Inspection Upper Extremity: Present: Normal Inspection. No: Cyanosis, Edema Lower Extremity: Present: Normal Inspection. No: Edema Neurological: Present: GCS=15, CN II-XII Intact, Speech Normal Skin: Present: Warm, Dry, Normal Color. No: Rashes Psychiatric: Present: Alert, Oriented x 3, Normal Insight, Normal Concentration Medical Decision Making ED Course and Treatment: 04/10/18 17:43 Impression: 67 year old male who presents to the emergency department complaining of palpitations and dyspnea on exertion. Differentials: r/o PE, WA, and CHF Plan: -- EKG -- Labs -- Chest X-ray -- Urinalysis -- Reassess and disposition Prior Visits: Notes and results from previous visits were reviewed. Patient was last seen in the emergency department on Progress Notes: EKG reviewed, shows: NSR at 80bpm, with left axis deviation. 04/10/18 19:39 Chest X-ray reviewed, shows: IMPRESSION: No active pulmonary disease. 04/10/18 19:44 case discussed with [employer] who works with Dr. Turner, who is aware and agrees with plan to admit patient. - EKG Interpretation Interpreted by ED Physician: Yes Type: 12 lead EKG - Scribe Statement The provider has reviewed the documentation as recorded by the Handyibsukh Saavedra Provider Scribe Attestation: All medical record entries made by the Scribe were at my direction and personally dictated by me. I have reviewed the chart and agree that the record accurately reflects my personal performance of the history, physical exam, medical decision making, and the department course for this patient. I have also personally directed, reviewed, and agree with the discharge instructions and disposition. Disposition/Present on Arrival - Present on Arrival Any Indicators Present on Arrival: No History of DVT/PE: No History of Uncontrolled Diabetes: No Urinary Catheter: No History of Decub. Ulcer: No History Surgical Site Infection Following: None - Disposition Have Diagnosis and Disposition been Completed?: Yes Diagnosis: Dizziness, Palpitations Disposition: HOSPITALIZED Disposition Time: 19:45 Patient Plan: Admission Condition: FAIR
--- NOTE | 2018-04-10 18:16 | RAD ---
Date of service: 04/10/2018 HISTORY: dyspnea on exertion COMPARISON: 02/12/2018. FINDINGS: LUNGS: The lungs are well inflated and clear. PLEURA: No pleural effusions or pneumothorax. CARDIOVASCULAR: The heart is normal in size. No aortic atherosclerotic calcification present. OSSEOUS STRUCTURES: Within normal limits for the patient's age. VISUALIZED UPPER ABDOMEN: Normal. OTHER FINDINGS: None. IMPRESSION: No active pulmonary disease.
[2018-04-10 18:40] LABS: PH,URINE 6.5 (4.7-8.0); URINE BILIRUBIN NEGATIVE (NEGATIVE); URINE BLOOD TRACE-INTACT (NEGATIVE); URINE GLUCOSE (UA) >=1000 mg/dL (NEGATIVE); URINE LEUKOCYTE ESTERASE NEGATIVE Leu/uL (NEGATIVE); URINE PROTEIN TRACE mg/dL (<30 mg/dL); URINE UROBILINOGEN 0.2 E.U./dL (<1 E.U./dL)
[2018-04-10 18:41] LABS: ALB/GLOB RATIO 1.3 (1.1-1.8); ALBUMIN 4.3 g/dL (3.0-4.8); BASO # 0.04 K/mm3 (0.0-2.0); BASO % 0.6 % (0.0-3.0); CALCIUM 9.4 mg/dL (8.4-10.5); EOS # 0.4 (0.0-0.7); EOS % 5.5 % (1.5-5.0); GRAN # 5.68 (1.4-6.5); GRAN % 80.7 % (50.0-68.0); HEMOGLOBIN 16.1 g/dL (14.0-18.0); LYMPH # 0.6 (1.2-3.4); LYMPH % 8.2 % (22.0-35.0); MEAN CELL VOLUME 88.2 fl (80.0-105.0); MEAN CORPUSCULAR HEMOGLOBIN 30.6 pg (25.0-35.0); MEAN CORPUSCULAR HGB CONC 34.7 g/dl (31.0-37.0); MONO # 0.4 (0.1-0.6); RBC 5.26 10^6/uL (3.5-6.1); RED CELL DISTRIBUTION WIDTH 13.5 % (11.5-14.5)
[2018-04-10 18:49] LABS: URINE APPEARANCE CLEAR (CLEAR); URINE COLOR YELLOW (YELLOW)
[2018-04-10 18:50] LABS: TROPONIN I 0.02 ng/mL
[2018-04-10 18:55] LABS: URINE BACTERIA MOD /hpf
[2018-04-10] MEDS ORDERED: Insulin Regular 1 UNITS/0.01 ML ML SC ONE (19:03)
[2018-04-10] MEDS ORDERED: Sodium Chloride 0.9% 1,000 ML IV STA (19:03)
[2018-04-11] MEDS ORDERED: Sodium Chloride 0.45% 1,000 ML IV SCH ×2 (00:35→09:39)
[2018-04-11] MEDS ORDERED: Insulin Regular 1 UNITS/0.01 ML ML SC ONE (01:30)
[2018-04-11] MEDS ORDERED: Insulin Reg-HIGH-Coverage SC SCH (08:45)
[2018-04-11 08:57] LABS: CALCIUM 9.2 mg/dL (8.4-10.5)
[2018-04-11] MEDS ORDERED: Insulin Regular 1 UNITS/0.01 ML ML IVP ONE (09:03)
--- NOTE | 2018-04-11 09:08 | CARD ---
APPROVED REPORT Date of service: 04/10/2018 EKG Measurement Heart [id number] <Conclusion> Normal sinus rhythm Right axis deviation Voltage for LVH. Non Specific ST_T Changes.
--- NOTE | 2018-04-11 09:22 | CP.PCM.PN ---
Subjective - Date & Time of Evaluation Date of Evaluation: 04/11/18 Time of Evaluation: 09:17 - Subjective Subjective: House Doc Note Called for diet order This is a 67 year old male with PMH afib, CAD with stents, CKD, came to [facility] for dizziness, hyperglycemia. Patient's blood sugar noted to be in 800s on admission, no ketones in urine, received 30 units sq insulin overnight with 1 L NS bolus, and maintenance IVF at 100. Denies fevers, chills, headache, dizziness, abdominal pain, nausea, vomiting, shortness of breath, chest pain. Patient states that he is hungry and would like to eat. Vitals: afebrile, BP 196/120, HR 81, RR 16, 98% RA Neuro: AAOx4 Resp: CTA b/l Cardio: S1 S2, RRR. No murmurs, rubs, gallops Abd: soft, NT, ND Extremities: no calf tenderness, no edema A/P: Hyperglycemia - insulin 7 units IVP - reassess blood sugar in 1 hour. If <250, can start diabetic diet - Decrease IV maintenance fluids - give home BP meds - Discussed case with PMD Dr Turner. Karlie Douglas, PGY2 Objective - Vital Signs/Intake and Output Vital Signs (last 24 hours): Temp Pulse Resp BP Pulse Ox 98.7 F 98 H 77 H 155/90 H 18 L 04/11/18 05:50 04/11/18 05:50 04/11/18 05:50 04/11/18 05:50 04/11/18 05:50 Intake and Output: 04/11/18 04/11/18 06:59 18:59 Intake Total 1000 Output Total 300 Balance 700 - Medications Medications: Current Medications Amlodipine Besylate (Norvasc) 10 mg PO ONCE ONE Stop: 04/11/18 09:18 Atorvastatin Calcium (Lipitor) 20 mg PO DIN NIECY Sodium Chloride (Sodium Chloride 0.45%) 1,000 mls @ 100 mls/hr IV .Q10H NIECY Last Admin: 04/11/18 01:00 Dose: 100 mls/hr Insulin Detemir (Levemir) 15 unit SC BID NIECY Insulin Human Regular (Humulin R Med) 0 units SC ACHS NIECY; Protocol Lisinopril (Zestril) 40 mg PO DAILY NIECY - Labs Labs: 04/10/18 18:17 04/11/18 06:45
[2018-04-11] MEDS: Insulin Detemir 100 units/ml Vial (Levemir) SC SCH ×2 (09:55→17:48)
[2018-04-11] MEDS: Insulin Reg-MEDIUM-Coverage SC SCH ×3 (11:50→21:15)
--- NOTE | 2018-04-11 18:34 | HP ---
DATE OF EXAM: 04/11/2018 HISTORY OF PRESENT ILLNESS: A 67-year-old white male with history of CAD, status post st[place] [address] Lacy. The patient was in his usual state of health until approximately 4 or 5 days prior to admission when he developed increasing thirst, increasing urination, and some lightheadedness and dizziness. The patient came to the emergency room after several days and was found to have hyperosmolar state with blood sugars over 800. The patient denies any history of diabetes mellitus. Does have a family history of diabetes mellitus in his mother. He is a only child. The patient is a smoker and nondrinker. He had been drinking soda and juice at home and not following a low carbohydrate diet. REVIEW OF SYSTEMS: The patient denies any fever or chills, dysuria, cough, sputum production, diarrhea, nausea, or vomiting. The patient denies any chest pain, palpitations and does complaint of some shortness of breath when walking up the stairs. The patient denies any hemoptysis, cough or sputum production. GI is negative for nausea, vomiting, diarrhea, or abdominal pain. is only positive for polyuria, but there is no dysuria and no hematuria. Neuro review of system is negative for headache, lightheadedness, dizziness, nausea, or vomiting. SOCIAL HISTORY: Positive only for tobacco. The patient is a nondrinker. No IV drug abuse. No illicit drug abuse. MEDICATIONS: The patient has been taking medications including losartan, Plavix, Norvasc, aspirin, and atorvastatin for his coronary artery disease. FAMILY HISTORY: Positive only for diabetes in his mother. The patient has no travel history. PHYSICAL EXAMINATION: GENERAL: Shows an obese white male in no apparent distress. Alert and oriented x3. Speech is fluent. NEUROLOGIC: Grossly intact. Pulses are intact bilaterally. CHEST: Clear to auscultation and percussion. HEART: Regular sinus rhythm with no S3 murmurs. ABDOMEN: Slightly obese, but benign. No hepatosplenomegaly. No masses palpable. Bowel sounds are normoactive. EXTREMITIES: Without cyanosis, clubbing, or edema. IMPRESSION: Hyperosmolar state, dehydration, history of coronary artery disease, and new onset of diabetes mellitus in a 67-year-old white male. PLAN: Hydration, insulin to control sugar, diabetic diet, and ambulation. Cardiac consult and diabetic education. Nadeem Turner MD
--- NOTE | 2018-04-11 19:59 | CON ---
DATE: 04/11/2018 REQUESTED BY: Dr. Turner REASON FOR CONSULTATION: Cardiology followup. HISTORY: This is a 67-year-old man well known to me with a history of coronary artery disease status post prior PCI who was admitted with dizziness, palpitations, and marked hyperglycemia. He was found to have a blood sugar of greater than 800 on admission. He was given insulin and started on IV fluids. He was seen resting in bed on telemetry. He has had no chest pain. No dyspnea. He states that his dizziness began several days ago, not associated with any palpitations. PAST MEDICAL HISTORY: Notable for problems mentioned above. He does have chronic renal insufficiency, hyperlipidemia, hypertension, and paroxysmal atrial fibrillation. He was recently admitted with rapid atrial fibrillation, underwent repeat cardiac catheterization at which time he was found to have [id number] in stent restenosis with normal left ventricular function. Continued medical therapy was advised. He has a history of cataracts. MEDICATIONS AT HOME: Include amlodipine 10 mg b.i.d., aspirin, losartan 100 mg daily, Lipitor 80 mg daily, Nicoderm patch, and Plavix 75 mg daily. ALLERGIES: NONE. SOCIAL HISTORY: He continues to smoke less than a pack per day. He denies alcohol use. FAMILY HISTORY: Remarkable for premature heart disease. REVIEW OF SYSTEMS: A 10-point review of system was unremarkable. PHYSICAL EXAMINATION GENERAL: He is a middle aged man who appears comfortable at rest. VITAL SIGNS: His blood pressure is 126/70, pulse 80 and sinus, respirations of 16. He is afebrile. HEENT: Normocephalic and atraumatic. NECK: Supple. No JVD noted. CHEST: Few scattered rhonchi heard. HEART: PMI normal position. No pathological murmurs or gallops noted. ABDOMEN: Soft, mildly obese, nontender, normoactive bowel sounds. EXTREMITIES: No edema. SKIN: Warm and dry. PSYCHIATRIC: Normal mood and affect. NEUROLOGIC: Alert, and oriented x3. No gross motor or sensory deficits noted. LABORATORY DATA: Potassium 3.8, BUN and creatinine 20 and 1.5. Glucose is 341 now, upon admission it was 859. White count 7.0, hemoglobin 16.1, hematocrit 46.4, with a platelet count of 144,000. Troponin is 0.02 with a CK of 211. BNP 139. DIAGNOSTIC DATA: Chest x-ray reveals normal cardiac silhouette with clear lung sanders. Electrocardiogram reveals sinus rhythm with a rightward axis and voltage criteria for LVH and no acute abnormalities. IMPRESSION: 1. Recent onset of diabetes with hyperosmolar state. 2. Dizziness, suspect this may be related to hyperglycemia and metabolic issues. 3. Coronary artery disease status post percutaneous coronary intervention, currently stable at present. 4. Rest of problems as noted. RECOMMENDATIONS: His current cardiac medications should be continued for now. Standard treatment for his hyperosmolar state and new onset diabetes is in progress. Continue risk factor control as advised. Complete smoking abstinence was encouraged as well. We will be happy to continue following as needed. Kwasi Lacy MD MTDD
[2018-04-12] MEDS: Insulin Reg-MEDIUM-Coverage SC SCH ×4 (07:53→21:21)
[2018-04-12] MEDS: Insulin Detemir 100 units/ml Vial (Levemir) SC SCH ×2 (09:42→17:16)
--- NOTE | 2018-04-12 13:09 | PN ---
DATE: 04/12/2018 SUBJECTIVE: A 67-year-old white male admitted hospital with hyperglycemia and history of CAD. The patient is doing well. Blood sugar is still in 360 range. We will increase his Levemir. We will add metformin. The patient is tolerating his diet well. He is starting to understand diabetic control. His A1C was 11.5. Recent consultation with Dr. Lacy. His vital signs are stable. His physical examination is unchanged. The patient had no further complaints. The patient ambulated and we will attempt to start to teach diabetic testing and insulin administration. Nadeem Turner MD
--- NOTE | 2018-04-13 00:41 | PN ---
DATE: 04/12/2018 SUBJECTIVE: The patient is seen lying in bed on telemetry. He is feeling somewhat better. His glucose control is improved. He has had significant improvement in his lightheadedness. No significant dysrhythmias have been documented. PHYSICAL EXAMINATION: GENERAL: He is a middle-aged man who appears comfortable at rest. VITAL SIGNS: Blood pressure is 136/86 with a pulse of 17 and sinus, respirations of 14. He is afebrile. NECK: No JVD. CHEST: Few scattered rhonchi heard. CARDIOPULMONARY: PMI normal position. Soft systolic murmur at left sternal border. ABDOMEN: Soft, nontender with normoactive bowel sounds. EXTREMITIES: No edema. DIAGNOSTIC DATA: Glucose is 370. Rest of his blood work is pending. MEDICATIONS: Include aspirin, Glucophage, insulin, Levemir insulin, Lipitor 80 mg daily, Nicoderm patch, Norvasc, Plavix and Zestril. IMPRESSION: 1. Hyperosmolar state with recent onset of diabetes mellitus. 2. Coronary artery disease status post multivessel PCI, clinically stable. 3. Tobacco abuse. RECOMMENDATIONS: His current cardiac medications will continue for now. Smoking abstinence was strongly encouraged. From a cardiac standpoint, telemetry monitoring can be discontinued at this time. We will be happy to follow and make further recommendations as appropriate. Kwasi Lacy MD
[2018-04-13] MEDS: Insulin Reg-MEDIUM-Coverage SC SCH (08:17)
[2018-04-13] MEDS: Insulin Detemir 100 units/ml Vial (Levemir) SC SCH ×2 (09:20→21:37)
[2018-04-13] MEDS ORDERED: Insulin Reg-HIGH-Coverage SC SCH ×2 (12:15)
[2018-04-13 16:24] LABS: CALCIUM 9.3 mg/dL (8.4-10.5)
[2018-04-13] MEDS: Sodium Chloride 0.9% 1,000 ML IV SCH ×2 (16:50→21:38)
[2018-04-13] MEDS: Insulin Lispro (humaLOG) LOW Coverage SC SCH ×2 (17:46→21:28)
[2018-04-13] MEDS: Insulin Lispro 1 UNITS/0.01 ML SC SCH ×2 (17:49→18:06)
--- NOTE | 2018-04-13 18:48 | PN ---
DATE: 04/13/2018 SUBJECTIVE: The patient is a 67-year-old patient of Dr. Turner covering for him, came to the emergency room because of not feeling well for short of breath. He was found to have hyperglycemia. The patient state he was not aware he has diabetes. Upon admission, his blood sugar was 447. The patient was started on IV fluids. Blood sugars will be monitored and insulin coverage is being given. Upon arrival on 04/10/2018, his blood sugar was 859. Since the patient has been on IV fluid and insulin coverage, he is doing better. No recurrent complain of chest pain. No nausea, vomiting or diarrhea. PHYSICAL EXAMINATION VITAL SIGNS: He is afebrile, pulse 79, respirations 18, blood pressure 152/76. LUNGS: Bilateral fair flow. No rhonchi or crackle. HEART: S1, S2, audible. ABDOMEN: Soft, obese. Nontender. No rebound. No guarding. NEUROLOGIC: He is awake, alert, oriented and communicative. LABORATORY DATA: Blood sugar is 374. Flu test is negative. ASSESSMENT AND PLAN: 1. New onset of diabetes. 2. Morbid obesity. 3. Coronary artery disease. 4. Hypertension. 5. History of angioplasty. PLAN: The patient is currently on aspirin [address] Mirian Lopez is consulted. The patient has been started on 20 units of insulin prior to each meal and is on Levemir 40 units at bedtime. We will start for diabetic eduction and currently he is on Norvasc. He is on Plavix. He is getting IV fluids and Dr. Turner will follow up the patient in a.m. Mikaela Grijalva MD
--- NOTE | 2018-04-13 19:27 | CON ---
DATE OF CONSULTATION: 01/11/2019 HISTORY OF PRESENT ILLNESS: This is a 67-year-old male with known history of coronary artery disease and cardiac tachyarrhythmias, presenting here with sudden onset of dizziness, lightheadedness, and palpitations with progressive shortness of breath and was evaluated to have recent and no onset of uncontrolled type 2 diabetes with marked hyperglycemic accelerations and is being referred now for diabetic evaluation and management. He was given a brief bout of IV hydration, but at this time the patient is not on any kind of IV fluids as noted today or yesterday. No recent lab work is also available as noted for the last 48 hours. He continues to have marked hyperglycemic accelerations despite the initiation of Levemir given as 20 units twice a day and metformin 850 b.i.d. as ordered by the primary physician. PAST MEDICAL HISTORY: History of coronary artery disease with previous coronary stent placement. History of chronic atrial fibrillation, on oral anticoagulation therapy. History of hypertension and dyslipidemia. History of chronic kidney disease, although the initial levels could be deceiving as the patient could have also dehydration causing the above mentioned. FAMILY HISTORY: Positive for hypertension and heart disease. SOCIAL HISTORY: The patient is an active smoker, consuming half a pack a day for some years now. Has a supportive family otherwise. REVIEW OF SYSTEMS: Admits to generalized body weakness with progressive bouts of dizziness and lightheadedness, worse on the day of admission. No chest pains, but admits to palpitations with progressive shortness of breath initially on exertion and then at rest. Also admits to nausea, dyspepsia and marked polyuria, nocturia and polydipsia. PHYSICAL EXAMINATION: GENERAL: Average built male in no apparent distress. VITAL SIGNS: Blood pressure of 150/90, pulse of 100 beats per minute and regular, temperature 98, respirations 20, height is 5 feet 9 inches, weight is 150 pounds. HEENT: Head normocephalic. Eyes anicteric with pink conjunctivae. Funduscopy not possible at this time. Ears, nose and throat otherwise normal. NECK: Supple. Thyroid gland is normal size. No carotid bruits or cervical adenopathy. CARDIOPULMONARY: Some adynamic precordium. S1 and S2 are rapid and regular. Lungs are clear to auscultation. ABDOMEN: Flat, soft with positive bowel sounds. EXTREMITIES: No peripheral edema. Pulses are +2 bilaterally. LABORATORY DATA: Chemistries: The initial BUN was 22, sodium 128, potassium 4.5, chloride 90, CO2 of 27, glucose 859, creatinine 1.8. The glucose values have ranged from 398 to 447 and 470 and over 500 mg/dL as noted today. The last chemistry done 2 days ago showed a creatinine of 1.5. His A1c is 11.5%, which is elevated and clearly indicative of suboptimal metabolic control, especially in the light of recent diagnosis thereof. ASSESSMENT: This is a 67-year-old male with uncontrolled and decompensated type 2 insulin-requiring diabetes, presenting here with hyperosmolar and hyperglycemic state and dehydration with prerenal azotemia and spurious hyponatremia with expected increased osmotic diuresis thereof. PLAN OF MANAGEMENT: We will reinitiate and resume the vigorous IV hydration as it is clearly needed at this time with expected increase of volume deficit from the persistent glycemic values of over 500 mg/dL even today. We will start him back on normal saline running at 150 mL/h as ordered now and obtain a stat basic metabolic panel now and also a repeat comprehensive metabolic panel tomorrow morning. We will obtain serial chemistries and supplement accordingly as needed. We will also initiate a more physiologic basal and bolus insulin drug combination and discontinue the metformin therapy as given. We will also discontinue the Levemir given as 20 units b.i.d. as ordered. We will start him with Levemir given as 40 units subcu at bedtime daily, to start tonight. We will add Humalog given as 20 units subcu t.i.d. before meals, to start at dinner time today as ordered. We will modify the coverage scale to obviate hypoglycemia and detailed orders have been given. We will initiate diabetic education to include glucose monitoring and insulin self-administration as he clearly needs insulin therapy at this time because of the marked glucotoxicity and hopefully enhance the possibility of a future response to oral hypoglycemic therapy given in drug combination as indicated. We will follow. Mirian Lopez MD
--- NOTE | 2018-04-13 20:15 | CP.PCM.PCO ---
<Carlos A Madera - Last Filed: 04/13/18 20:14> Physician Communication Note - Physician Communication Note Physician Communication Note: Patient had 4 beats of ventricular tachycardia. Patient was asymptomatic. <Iris Bray - Last Filed: 04/14/18 02:27> Attending/Attestation - Attestation I have personally seen and examined this patient.: Yes I have fully participated in the care of the patient.: Yes I have reviewed all pertinent clinical information: Yes Notes (Text): 04/14/18 02:23 S:Patient was seen at bed side. As per nurse ,patient had 4 beats of VTACH on monitor. Medical record was reviewed. O: In no acute distress. Afebrile, pulse ox normal. LUNGS: Normal breathing pattern. A:Non sustained ventricular tachycardia. P: BMP,mag. phos, Trop -NL. EKG-NSR, V6 isolated T wave flipping. Observatio. 04/14/18 02:27
[2018-04-13 20:44] LABS: BLOOD UREA NITROGEN 21 mg/dL (7-21); CALCIUM 9.3 mg/dL (8.4-10.5); GFR NON-AFRICAN AMERICAN 44
[2018-04-13 20:56] LABS: TROPONIN I < 0.01 ng/mL
[2018-04-14] MEDS: Sodium Chloride 0.9% 1,000 ML IV SCH ×4 (05:09→22:06)
[2018-04-14 06:26] LABS: BASO # 0.04 K/mm3 (0.0-2.0); BASO % 0.7 % (0.0-3.0); EOS # 0.5 (0.0-0.7); EOS % 8.5 % (1.5-5.0); GRAN # 4.29 (1.4-6.5); GRAN % 70.3 % (50.0-68.0); HEMOGLOBIN 13.3 g/dL (14.0-18.0); LYMPH # 1.1 (1.2-3.4); LYMPH % 17.2 % (22.0-35.0); MEAN CELL VOLUME 89.6 fl (80.0-105.0); MEAN CORPUSCULAR HEMOGLOBIN 29.6 pg (25.0-35.0); MEAN PLATELET VOLUME 11.5 fl (7.0-11.0); MONO # 0.2 (0.1-0.6); MONO % 3.3 % (1.0-6.0); RBC 4.5 10^6/uL (3.5-6.1); RED CELL DISTRIBUTION WIDTH 14.1 % (11.5-14.5); WHITE BLOOD COUNT 6.1 10^3/uL (4.5-11.0)
[2018-04-14 06:49] LABS: ALB/GLOB RATIO 1.1 (1.1-1.8); ALBUMIN 3.4 g/dL (3.0-4.8); ALT/SGPT 63 U/L (7-56); AST/SGOT 111 U/L (17-59); BLOOD UREA NITROGEN 19 mg/dL (7-21); CALCIUM 8.7 mg/dL (8.4-10.5); GFR NON-AFRICAN AMERICAN 51
[2018-04-14] MEDS: Insulin Lispro (humaLOG) LOW Coverage SC SCH ×4 (08:49→22:02)
[2018-04-14] MEDS: Insulin Lispro 1 UNITS/0.01 ML SC SCH ×3 (08:50→17:18)
--- NOTE | 2018-04-14 10:40 | PN ---
DATE: 04/14/2018 SUBJECTIVE: This is a 67-year-old white male with new onset diabetes mellitus, hyperglycemia over 900, the patient is under 200 today. He was seen consultation with Dr. Mirian Lopez. The patient also was exposed to possible alexandro flu in his roommate. The patient is on precautions. He has no symptoms or signs of flu at this time. We are being cautious and keeping the patient isolated until the incubation period is over. The patient is afebrile. Vital signs are stable. Chest is clear to auscultation and percussion. slightly elevated. BUN and creatinine 90 and 1.4. Otherwise his blood sugar is down to 232, 200 this morning. The patient will continue to be observed. He also has some elevated liver enzymes. He will have a hepatitis profile and an ultrasound of the liver. Nadeem Turner MD
--- NOTE | 2018-04-14 16:12 | PN ---
DATE: 04/14/2018 ENDO FOLLOWUP NOTE ROOM: 270. SUBJECTIVE: This is a 67-year-old male with recent uncontrolled type 2 insulin-requiring diabetes of recent onset and diagnosis, presenting here with generalized body weakness and supervening palpitations and shortness of breath and is now being followed closely for metabolic management of recent hyperglycemic accelerations as noted thereof. His glucose values overnight have ranged from 190-207 mg/dL. His chemistries today showed a BUN of 19, sodium 139, potassium 3.9, chloride 109, CO2 of 24, glucose and creatinine 1.4. ASSESSMENT: This is a 67-year-old male with uncontrolled and decompensated type 2 insulin-requiring diabetes with marked hyperglycemic accelerations and concomitant hyperosmolar hyperglycemic state and dehydration with prerenal azotemia and spurious hyponatremia, that is improving metabolically as noted thereof. His biochemical indices have improved with vigorous intravenous hydration as given. His creatinine is down now to 1.4 as noted with BUN also down to 19 as noted. PLAN OF MANAGEMENT: We will continue the modified basal and bolus insulin regimen to allow for dose equilibration and continue the Humalog given as 20 units subcu t.i.d. before meals as ordered. We will continue the basal insulin given as Levemir at 14 units subcu at bedtime daily as given. We will titrate incrementally as indicated to optimize metabolic control. We will also continue the vigorous IV hydration as given to optimize his fluid and electrolyte losses from the increased glucose toxicity thereof. We will continue and reinforce diabetic education to include insulin self-administration and glucose monitoring at home as noted. We will obtain serial chemistries and supplement accordingly as needed. We will continue the normal saline hydration running at 150 mL/hour as ordered. We will obtain serial chemistries and supplement accordingly as needed. We will follow. Mirian Lopez MD
--- NOTE | 2018-04-14 19:08 | CON ---
DATE OF CONSULTATION: 04/14/2018 CHIEF COMPLAINT: Possible exposure to the influenza virus. HISTORY OF PRESENT ILLNESS: This is a 67-year-old male, who has a history of coronary artery disease with four stent placement, hypertension, hyperlipidemia, kidney disease and atrial fibrillation, who was admitted with palpitations and dizziness and found to have hyperglycemia with the patient who was initially thought of having influenza virus and the concern has been of a possible exposure to the flu. PAST MEDICAL HISTORY: Significant for coronary artery disease, atrial fibrillation, hypertension, hyperlipidemia, kidney disease. PAST SURGICAL HISTORY: Significant for left cataract surgery. MEDICATIONS AT HOME: Amlodipine, losartan, Plavix and Lipitor. ALLERGIES: THE PATIENT HAS NO KNOWN ALLERGIES. REVIEW OF SYSTEMS: A 12-point review of systems is performed. The patient has no nausea or vomiting. No fevers and chills. He came in with palpitations and dizziness. PHYSICAL EXAMINATION: GENERAL: The patient is in bed, in no acute distress. VITAL SIGNS: Temperature of 98, blood pressure is 150/90, respiratory rate of 20, heart rate of 83. HEENT: Unremarkable. NECK: Supple. LUNGS: Decreased breath sounds. HEART: Normal S1 and S2. ABDOMEN: Soft, nontender. LABORATORY EXAMINATION: White count of 7, hemoglobin of 16, and platelets of 144,000. Chemistries are noted with a creatinine of 1.4. LFTs are elevated. The urinalysis is noted. Beta-hydroxybutyrate is 0.53, which is high. Influenza serology is negative. Microbiology is not available. The patient had a chest x-ray, which is negative. ASSESSMENT AND PLAN: This is a 67-year-old male with coronary artery disease with four stents, hypertension, hyperlipidemia, found to have #1 is a new onset of diabetes mellitus with hyperglycemia. He was felt to be exposed to a patient with influenza; however, review of that patient's notes and charts reveals the source patient did not have influenza, so this patient was not exposed to influenza. No prophylaxis recommended at this time. No isolation recommended at this time. If it was exposure, prophylaxis with Tamiflu is recommended 75 mg once daily for 10 days to 6 weeks. However, no prophylaxis is indicated at this time since there was no exposure to influenza. The source patient did not have influenza and this patient was not exposed, but if indicated, dosing would be 75 mg of Tamiflu daily for 10 days to 6 weeks duration. This is not needed here. Osito Schwartz MD [facility] # [id number]
[2018-04-14] MEDS: Insulin Detemir 100 units/ml Vial (Levemir) SC SCH (22:06)
[2018-04-15] MEDS: Sodium Chloride 0.9% 1,000 ML IV SCH ×4 (02:21→12:02)
[2018-04-15 07:56] LABS: HEPATITIS B SURFACE AG Negative (NEGATIVE)
[2018-04-15] MEDS: Insulin Lispro (humaLOG) LOW Coverage SC SCH ×4 (07:57→21:43)
[2018-04-15 07:58] LABS: PH,URINE 6.5 (4.7-8.0); URINE BILIRUBIN NEGATIVE (NEGATIVE); URINE BLOOD LARGE (NEGATIVE); URINE GLUCOSE (UA) 500 mg/dL (NEGATIVE); URINE LEUKOCYTE ESTERASE TRACE Leu/uL (NEGATIVE); URINE PROTEIN NEGATIVE mg/dL (<30 mg/dL); URINE UROBILINOGEN 0.2 E.U./dL (<1 E.U./dL)
[2018-04-15 07:58] LABS: HEPATITIS A IGM NEGATIVE (NEGATIVE); HEPATITIS B CORE AB NEGATIVE (NEGATIVE)
[2018-04-15] MEDS: Insulin Lispro 1 UNITS/0.01 ML SC SCH ×3 (07:59→17:41)
[2018-04-15 08:10] LABS: HEPATITIS C ANTIBODY NEGATIVE (NEGATIVE)
[2018-04-15 08:17] LABS: URINE APPEARANCE CLEAR (CLEAR); URINE COLOR YELLOW (YELLOW)
[2018-04-15 08:19] LABS: URINE BACTERIA LARGE /hpf; URINE RBC TNTC /hpf (0-2)
[2018-04-15 09:37] LABS: BASO # 0.06 K/mm3 (0.0-2.0); BASO % 0.9 % (0.0-3.0); EOS # 0.6 (0.0-0.7); EOS % 9.9 % (1.5-5.0); GRAN # 4.32 (1.4-6.5); GRAN % 67.6 % (50.0-68.0); HEMOGLOBIN 14.8 g/dL (14.0-18.0); LYMPH # 1.1 (1.2-3.4); LYMPH % 17.1 % (22.0-35.0); MEAN CELL VOLUME 89.6 fl (80.0-105.0); MEAN CORPUSCULAR HEMOGLOBIN 30.1 pg (25.0-35.0); MEAN CORPUSCULAR HGB CONC 33.6 g/dl (31.0-37.0); MEAN PLATELET VOLUME 11.5 fl (7.0-11.0); MONO # 0.3 (0.1-0.6); MONO % 4.5 % (1.0-6.0); RBC 4.91 10^6/uL (3.5-6.1); RED CELL DISTRIBUTION WIDTH 14.2 % (11.5-14.5); WHITE BLOOD COUNT 6.4 10^3/uL (4.5-11.0)
--- NOTE | 2018-04-15 10:42 | CARD ---
APPROVED REPORT Date of service: 04/14/2018 EKG Measurement Heart [id number] <Conclusion> Normal sinus rhythm Nonspecific T wave abnormality
--- NOTE | 2018-04-15 12:28 | PN ---
DATE: 04/15/2018 SUBJECTIVE: A 67-year-old male admitted to the hospital with hyperglycemia, new-onset diabetes. The patient's blood sugars are better controlled. Dr. Mirian Lopez saw the patient for Endocrinology. The patient also had recent episode of pink-tinged urine consistent with hematuria. The patient has dropped his hemoglobin from 16 to 13. Repeat CBC is pending, although the first CBC was done when the patient was dehydrated with hyperglycemia. The patient denies any back pain, did complain of some penis pain this morning, which has dissipated. PHYSICAL EXAMINATION: VITAL SIGNS: Stable. CHEST: Clear to auscultation. HEART: Examination reveals sinus rhythm. ABDOMEN: There is no CVA tenderness. LABORATORY DATA: Repeat CBC is pending. Ultrasound of the abdomen was done. Hepatitis profile was negative. Nadeem Turner MD
--- NOTE | 2018-04-15 12:52 | CP.PCM.PN ---
Subjective - Date & Time of Evaluation Date of Evaluation: 04/15/18 Time of Evaluation: 10:30 - Subjective Subjective: Started having hematuria and pain on urination today, no fevers, no flank pain, no diarrhea, no abdominal pain. Objective - Vital Signs/Intake and Output Vital Signs (last 24 hours): Temp Pulse Resp BP Pulse Ox 98.1 F 76 17 152/92 H 100 04/15/18 12:00 04/15/18 12:00 04/15/18 12:00 04/15/18 12:00 04/15/18 12:00 Intake and Output: 04/15/18 04/15/18 06:59 18:59 Intake Total 5040 Output Total 700 Balance 4340 - Medications Medications: Current Medications Amlodipine Besylate (Norvasc) 10 mg PO BID [facility] Last Admin: 04/15/18 09:59 Dose: 10 mg Aspirin (Aspirin Chewable) 81 mg PO DAILY [facility] Last Admin: 04/15/18 09:59 Dose: 81 mg Atorvastatin Calcium (Lipitor) 80 mg PO DIN [facility] Last Admin: 04/14/18 17:19 Dose: 80 mg Clopidogrel Bisulfate (Plavix) 75 mg PO DAILY [facility] Last Admin: 04/15/18 09:59 Dose: 75 mg Sodium Chloride (Sodium Chloride 0.9%) 1,000 mls @ 100 mls/hr IV .Q10H [facility] Last Admin: 04/15/18 12:02 Dose: 100 mls/hr Insulin Detemir (Levemir) 40 unit SC HS [facility] Last Admin: 04/14/18 22:06 Dose: 40 units Insulin Human Lispro (Humalog Low) 0 units SC ACHS [facility]; Protocol Last Admin: 04/15/18 12:09 Dose: Not Given Insulin Human Lispro (Humalog) 20 units SC AC [facility] Last Admin: 04/15/18 12:23 Dose: 20 units Lisinopril (Zestril) 40 mg PO DAILY [facility] Last Admin: 04/15/18 09:59 Dose: 40 mg Nicotine (Nicoderm Cq) 1 patch TD DAILY [facility] Last Admin: 04/15/18 09:58 Dose: 1 patch - Labs Labs: 04/15/18 09:30 04/14/18 05:30 - Constitutional Appears: Chronically Ill - Head Exam Head Exam: NORMAL INSPECTION - Neck Exam Neck Exam: absent: Meningismus - Respiratory Exam Respiratory Exam: Decreased Breath Sounds - Cardiovascular Exam Cardiovascular Exam: +S1, +S2 - GI/Abdominal Exam GI & Abdominal Exam: Soft. absent: Tenderness Assessment and Plan - Assessment and Plan (Free Text) Plan: Assessment dysuria with hematuria, consider UTI, R/O urolithiasis or nephrolithiasis, R/O prostate disease CAD S/P PCI atrial fibrillation HTN dyslipidemia chronic renal failure S/P left cataract surgery Plan patient started on Cipro but will switch to cefepime pending urine cx, urin alysis, will get PSA levels and urinary bladder ultrasound will monitor clinically
--- NOTE | 2018-04-15 13:54 | US ---
Date of service: 04/15/2018 HISTORY: lfts COMPARISON: None. TECHNIQUE: Sonographic evaluation of the right upper quadrant of the abdomen. FINDINGS: LIVER: Measures 19 cm in length. Increased echogenicity of the liver parenchyma. No mass. No intrahepatic bile duct dilatation. GALLBLADDER: Unremarkable. No gallstones. COMMON BILE DUCT: Measures mm. No stones. No dilatation. PANCREAS: Unremarkable as visualized. No mass. No ductal dilatation. RIGHT KIDNEY: Measures cm in length. Normal echogenicity. No calculus, mass, or hydronephrosis. AORTA: No aneurysmal dilatation. IVC: Unremarkable. OTHER FINDINGS: None . IMPRESSION: Fibro/fatty infiltration of the liver with hepatomegaly.
--- NOTE | 2018-04-15 13:55 | PN ---
DATE: 04/15/2018 LOCATION: Room 270. SUBJECTIVE: This is a 67-year-old male with recent uncontrolled type 2 insulin-requiring diabetes of recent onset and evaluation, now being followed closely for metabolic management. His glycemic levels are fluctuating, but improved overnight and the glucose values have ranged from 182 to 187 and 190 mg/dL. His chemistry showed a BUN of 19, sodium 139, potassium 3.9, chloride 109, CO2 of 24, glucose 232, and creatinine 1.4. So, at this time, we will continue the same basal and bolus insulin regimen to allow for dose equilibration and keep him on the Levemir given as 40 units subcu at bedtime daily as given. We will also continue the Humalog given as 20 units subcu t.i.d. before meals as ordered. We will continue the low-dose correction scale using Humalog insulin as given. We will continue the diabetic education to include insulin self-administration and glucose monitoring as this is the first time that the patient will be on insulin therapy as noted. We will also obtain serial chemistries and supplement accordingly as needed. We will follow. Mirian Lopez MD
[2018-04-15] MEDS: Cefepime 1gm in NS 100ml 1 GM/100 ML BAG IVPB SCH ×2 (14:35→21:19)
[2018-04-15 16:53] VITALS: PULSE 81; RESP 20; TEMP 98.6; O2SAT 95
[2018-04-15] MEDS: Insulin Detemir 100 units/ml Vial (Levemir) SC SCH (21:19)
[2018-04-16 07:22] LABS: ALB/GLOB RATIO 1.1 (1.1-1.8); ALBUMIN 3.4 g/dL (3.0-4.8); ALT/SGPT 66 U/L (7-56); AST/SGOT 110 U/L (17-59); BLOOD UREA NITROGEN 12 mg/dL (7-21); CALCIUM 8.8 mg/dL (8.4-10.5); GFR NON-AFRICAN AMERICAN > 60
[2018-04-16] MEDS: Insulin Lispro 1 UNITS/0.01 ML SC SCH (09:26)
[2018-04-16] MEDS: Insulin Lispro (humaLOG) LOW Coverage SC SCH (09:27)
[2018-04-16] MEDS: Cefepime 1gm in NS 100ml 1 GM/100 ML BAG IVPB SCH (09:28)
[2018-04-16] MEDS: Sodium Chloride 0.9% 1,000 ML IV SCH (09:29)
[2018-04-16 09:39] VITALS: BP 154/98
[2018-04-16] MEDS ORDERED: Sodium Chloride 0.9% 1,000 ML IV SCH (11:45)
--- NOTE | 2018-04-16 12:25 | US ---
Date of service: 04/15/2018 PROCEDURE: Ultrasound of the Bladder HISTORY: rule out bladder stone COMPARISON: None available. TECHNIQUE: Grayscale imaging was performed. FINDINGS: The urinary bladder is well distended and grossly normal in appearance without intraluminal stone or intraluminal debris. There is mild diffuse circumferential mural thickening. No free fluid in pelvis. Bilateral ureteral jets are visualized on color flow imaging Prevoid Volume: 563.65 cc. Post void residual: 178.23 cc. IMPRESSION: No sonographic evidence for bladder stone. Mild diffuse circumferential mural thickening of the urinary bladder wall which may represent cystitis in the appropriate clinical setting. Large postvoid residual.
--- NOTE | 2018-04-16 13:24 | PN ---
DATE: 04/16/2018 ENDO FOLLOWUP NOTE LOCATION: In room 361. SUBJECTIVE: This is a 57-year-old male with recent uncontrolled type 2 insulin requiring diabetes, now being followed closely for metabolic management. His glycemic levels are fluctuating, but improved in the glucose values overnight, have ranged from 139 to 180 mg/dL. His chemistry showed a BUN of 12, protein 140, potassium 4.0, chloride 110, CO2 of 23, glucose 179 and creatinine 1.2. So, at this time we will continue the modified basal and bolus insulin regimen to allow for dose equilibration and keep him on the Humalog given as 20 units subcutaneous three times a day before meals as ordered. We will continue also the basal insulin given as Levemir at 40 units subcutaneous at bedtime daily as given. We will obtain serial chemistries and supplement accordingly as needed. He has also been given diabetic education by our nurse educator, Ms. Kamille Santa, and he is able to self-administrate his own insulin regimen at this time and also do the glucose monitoring as undertaken. The prescriptions for his insulin and glucose has been made this morning and given to the patient accordingly. He will follow with his primary doctor Dr. Turner for ongoing diabetic medical management, but I gave a recommendation for a local diabetic specialist at [facility] Dr. Horne, if he is interested to go otherwise. We will follow. Mirian Lopez MD
--- NOTE | 2018-04-16 17:12 | DS ---
HISTORY OF PRESENT ILLNESS: A 67-year-old white male admitted to hospital with new onset of hyperglycemia with blood sugars over 850. The patient was treated with insulin and hydration. The patient has some mild renal insufficiency, mild elevated liver enzymes. Ultrasound showed soluble fatty liver. The patient was found to have some hematuria, dysuria and bacteriuria, was started on Cipro with clearing of urine. Vital signs are stable. The patient will be discharged home on long-acting and short-acting insulin twice a day. He will be discharged home on Lipitor. He does have a history of CAD, is status post stent. He also was seen in consultation by Dr. Mirian Lopez and Dr. Lacy. He was treated with DONNA inhibitors, Lipitor, Plavix, aspirin, long-and short-acting insulin and Cipro. The patient will be discharged to home in good condition, to be followed as an outpatient. FINAL DISCHARGE DIAGNOSES: Hematuria, urinary tract infection, coronary artery disease, new onset hyperglycemia and dehydration. Nadeem Turner MD
== END 2018-04-16 12:52 | disposition home or self-care (01) | DRG 638 ==
LOC: ED 17:10 → ERH 19:45 → OBSVTOIN 04-12 10:27 → 3RNO 04-15 13:21
PROVIDERS: ADMIT Internal Medicine; ATTEND Internal Medicine
DX: E11.00 Type 2 diabetes mellitus with hyperosmolarity without nonketotic hyperglycemic-hyperosmolar coma (NKHHC) (principal); N39.0 Urinary tract infection, site not specified; I47.2 Ventricular tachycardia; E87.1 Hypo-osmolality and hyponatremia; I12.9 Hypertensive chronic kidney disease with stage 1 through stage 4 chronic kidney disease, or unspecified chronic kidney disease; N18.3 Chronic kidney disease, stage 3 (moderate); E11.22 Type 2 diabetes mellitus with diabetic chronic kidney disease; I25.10 Atherosclerotic heart disease of native coronary artery without angina pectoris; I48.2 Chronic atrial fibrillation; E86.0 Dehydration; F17.210 Nicotine dependence, cigarettes, uncomplicated; E78.5 Hyperlipidemia, unspecified; E66.01 Morbid (severe) obesity due to excess calories; Z68.32 Body mass index [BMI] 32.0-32.9, adult; Z79.4 Long term (current) use of insulin; Z79.01 Long term (current) use of anticoagulants; Z79.02 Long term (current) use of antithrombotics/antiplatelets; Z95.5 Presence of coronary angioplasty implant and graft; Z98.42 Cataract extraction status, left eye; Z83.3 Family history of diabetes mellitus

== ENCOUNTER 2018-05-07 13:56 | Emergency (ER) | payer MEDICARE, OTHER ==
[2018-05-07 15:11] VITALS: BMI 34.0
[2018-05-07 15:15] VITALS: RESP 18; TEMP 98.7
[2018-05-07] MEDS ORDERED: Sodium Chloride 0.9% 1,000 ML IV STA ×2 (15:39→17:21)
--- NOTE | 2018-05-07 15:43 | ED PDOC ---
Arrival/HPI - General Chief Complaint: Dizziness/Lightheaded Time Seen by Provider: 05/07/18 15:29 Historian: Patient - History of Present Illness Narrative History of Present Illness (Text): 05/07/18 15:38 67 year old active smoker male, whose past medical history includes diabetes, CAD s/p stents, hypertension, hyperlipidemia, Afib, and CKD III, presents to the emergency department complaining of neck pain and lightheadedness, for the past 4 days. Patient states every time he stands he feels lightheaded and needs to sit down to prevent falling over. Patient denies fevers, chills, headache, chest pain, shortness of breath, dyspnea on exertion, cough, abdominal pain, nausea, vomiting, diarrhea, back pain, or any other complaint. PMD: Dr. Turner Time/Duration: < week (4 days) Symptom Onset: Gradual Symptom Course: Unchanged Activities at Onset: Light Context: Home Past Medical History - Provider Review Nursing Documentation Reviewed: Yes - Infectious Disease Hx of Infectious Diseases: None - Tetanus Immunization Tetanus Immunization: Unknown - Cardiac Hx OH: Yes (4 stents) Hx Hypertension: Yes Hx Pacemaker: No - Pulmonary Hx Respiratory Disorders: Yes (SMOKES 3 CIGA A DAY.) Other/Comment: Smoker - Neurological Hx Paralysis: No - HEENT Hx HEENT Disorder: Yes (LEFT CATARACT SX) Hx Cataracts: Yes (WITH LEFT EYE SX) - Renal Hx Renal Disorder: Yes (CKD 3) - Endocrine/Metabolic Hx Endocrine Disorders: No - Hematological/Oncological Hx Blood Transfusions: No - Integumentary Hx Dermatological Disorder: No - Musculoskeletal/Rheumatological Hx Musculoskeletal Disorders: No Hx Falls: No - Gastrointestinal Hx Gastrointestinal Disorders: No - Genitourinary/Gynecological Hx Genitourinary Disorders: No - Psychiatric Hx Psychophysiologic Disorder: No Hx Depression: No Hx Emotional Abuse: No Hx Physical Abuse: No Hx Substance Use: No - Past Surgical History Past Surgical History: Non-Contributing - Surgical History Other/Comment: Cardiac cath x 4 stents. eye surgery - Anesthesia Hx Anesthesia: Yes Hx Anesthesia Reactions: No Hx Malignant Hyperthermia: No - Suicidal Assessment Feels Threatened In Home Enviroment: No Family/Social History - Physician Review Nursing Documentation Reviewed: Yes Family/Social History: No Known Family HX Smoking Status: Light Smoker < 10 Cigarettes Daily Hx Alcohol Use: Yes (socially) Frequency of alcohol use: Socially Hx Substance Use: No Hx Substance Use Treatment: No Allergies/Home Meds Allergies/Adverse Reactions: Allergies No Known Allergies Allergy (Verified 01/28/18 21:17) Home Medications: Home Meds Medication Instructions Recorded Confirmed amLODIPine [Norvasc] 10 mg PO BID 04/10/18 04/10/18 Review of Systems - Physician Review All systems were reviewed & negative as marked: Yes - Review of Systems Constitutional: absent: Fevers Respiratory: absent: SOB Physical Exam - Physical Exam Narrative Physical Exam (Text): 05/07/18 15:38 Constitutional: No acute distress. Head: Normocephalic. Atraumatic. Eyes: PERRL. No ptosis. No nystagmus. ENT: Moist mucous membranes. Neck: Supple. Cardiovascular: Regular rate. Chest: No tenderness. Respiratory: Clear to auscultation bilaterally. GI: Soft. Nontender. Nondistended. Back: No CVA tenderness. Musculoskeletal: No tenderness or swelling of extremities. Skin: No rash. Neurologic: Alert, no focal deficit. Negative ho hallpike maneuver. FTN/HTS normal. Gait steady. Romberg normal. Vital Signs Reviewed: Yes Vital Signs Temp Pulse Resp BP Pulse Ox 05/07/18 15:14 98.7 F 98 H 18 100/67 98 Temperature: Afebrile Blood Pressure: Normal Pulse: Tachycardic Respiratory Rate: Normal Appearance: Positive for: Well-Appearing, Non-Toxic, Comfortable Pain Distress: None Mental Status: Positive for: Alert and Oriented X 3 Medical Decision Making ED Course and Treatment: 05/07/18 15:39 Impression: 67 year old male who presents to the emergency department complaining of neck pain and lightheadedness. Plan: -- CTA head and neck -- Head CT w/o contrast -- EKG -- Labs -- Chest X-ray -- IV fluids -- Reassess and disposition Prior Visits: Notes and results from previous visits were reviewed. Progress Notes: EKG NSR 86 bpm, no ST elevations Patient's orthostatic vital signs somewhat positive with drop in blood pressure. Labs consistent with dehydration. IVF administered in ED, patient in no acute distress. Dr. Turner's [employer] called back, states patient can be seen in Dr. Turner's office tomorrow morning. - Lab Interpretations I have reviewed the lab results: Yes - EKG Interpretation Interpreted by ED Physician: Yes Type: 12 lead EKG - Scribe Statement The provider has reviewed the documentation as recorded by the Scribe Marcie Saavedra Provider Scribe Attestation: All medical record entries made by the Scribe were at my direction and personally dictated by me. I have reviewed the chart and agree that the record accurately reflects my personal performance of the history, physical exam, medical decision making, and the department course for this patient. I have also personally directed, reviewed, and agree with the discharge instructions and disposition. Disposition/Present on Arrival - Present on Arrival Any Indicators Present on Arrival: No History of DVT/PE: No History of Uncontrolled Diabetes: No Urinary Catheter: No History of Decub. Ulcer: No History Surgical Site Infection Following: None - Disposition Have Diagnosis and Disposition been Completed?: Yes Diagnosis: Dehydration Disposition: HOME/ ROUTINE Disposition Time: 18:03 Patient Plan: Discharge Condition: STABLE Discharge Instructions (ExitCare): Dehydration, Adult (DC) Additional Instructions: Call Dr. Turner's office in the morning and they will give you a time to come in. Referrals: Nadeem Turner MD [Staff Provider] - Follow up with primary Forms: [employer] ([facility]) (Mauritanian)
[2018-05-07 16:35] LABS: BASO # 0.02 K/mm3 (0.0-2.0); BASO % 0.2 % (0.0-3.0); EOS # 0.3 (0.0-0.7); EOS % 2.6 % (1.5-5.0); LYMPH # 0.8 (1.2-3.4); LYMPH % 7.7 % (22.0-35.0); MEAN CELL VOLUME 89.9 fl (80.0-105.0); MEAN CORPUSCULAR HEMOGLOBIN 30.6 pg (25.0-35.0); MEAN PLATELET VOLUME 10.8 fl (7.0-11.0); MONO # 0.9 (0.1-0.6); MONO % 9.3 % (1.0-6.0); RBC 5.23 10^6/uL (3.5-6.1); RED CELL DISTRIBUTION WIDTH 13.6 % (11.5-14.5); WHITE BLOOD COUNT 9.7 10^3/uL (4.5-11.0)
[2018-05-07 16:43] LABS: INR 1.22; PARTIAL THROMBOPLASTIN TIME 37.7 Seconds (26.9-38.3); PROTHROMBIN TIME 13.5 SECONDS (9.4-12.5)
[2018-05-07 16:58] LABS: TROPONIN I < 0.01 ng/mL
[2018-05-07 17:04] LABS: ALB/GLOB RATIO 1.2 (1.1-1.8); ALBUMIN 4.5 g/dL (3.0-4.8); ALT/SGPT 98 U/L (7-56); AST/SGOT 166 U/L (17-59); BLOOD UREA NITROGEN 20 mg/dL (7-21); CALCIUM 9.7 mg/dL (8.4-10.5); GFR NON-AFRICAN AMERICAN 32
--- NOTE | 2018-05-07 18:25 | RAD ---
Date of service: 05/07/2018 HISTORY: dizziness COMPARISON: 04/10/2018, 02/12/2018 and 02/23/2017 serial chest radiographs FINDINGS: LUNGS: No active pulmonary disease. PLEURA: No significant pleural effusion identified, no pneumothorax apparent. CARDIOVASCULAR: No atherosclerotic calcification present Prominent superior mediastinum likely vascular and similar to that seen previously. Normal. OSSEOUS STRUCTURES: No significant abnormalities. VISUALIZED UPPER ABDOMEN: Normal. OTHER FINDINGS: None. IMPRESSION: No active pulmonary disease. No significant interval change compared to the prior examination(s).
[2018-05-07 19:28] VITALS: PULSE 90
[2018-05-07 19:29] VITALS: BP 110/70
[2018-05-07 19:32] VITALS: O2SAT 99
--- NOTE | 2018-05-08 12:33 | CARD ---
APPROVED REPORT Date of service: 05/07/2018 EKG Measurement Heart [id number] ID [id number] <Conclusion> Normal sinus rhythm Right superior axis deviation Pulmonary disease pattern Abnormal ECG
== END 2018-05-07 19:28 | disposition home or self-care (01) ==
LOC: ED 13:56
DX: E86.0 Dehydration (principal); E78.5 Hyperlipidemia, unspecified; I25.10 Atherosclerotic heart disease of native coronary artery without angina pectoris; I12.9 Hypertensive chronic kidney disease with stage 1 through stage 4 chronic kidney disease, or unspecified chronic kidney disease; N18.3 Chronic kidney disease, stage 3 (moderate); I48.91 Unspecified atrial fibrillation; F17.210 Nicotine dependence, cigarettes, uncomplicated; E11.9 Type 2 diabetes mellitus without complications
CPT/HCPCS: 71045; 80053; 82550; 84484; 85025; 85610; 85730; 93005; 96360; 96361; 99285; J7030

== ENCOUNTER 2018-08-15 09:00 | Outpatient (CLI) | payer MEDICARE, OTHER | END 2018-08-15 09:01 | disposition home or self-care (01) | LOC: RAD 09:00 ==